=== PATIENT | female | born 1955 | race Caucasian/White ===

== ENCOUNTER → 2019-04-07 | Outpatient (CLI) | payer BC ==
[~2019-04-07] VITALS: Ht 167 cm; Wt 82.0 kg
[~2019-04-07] MED LIST: CATHETER FLUSH 10 ML SYR IV PRN; REGADENOSON 0.4 MG/5 ML SYR (LEXISCAN) IV ONE
[2019-04-07 09:59] VITALS: BP 129/80
--- NOTE | 2019-04-08 11:51 | STRESS TEST ---
DATE OF SERVICE: 04/07/2019 RESTING AND POST REGADENOSON TECHNETIUM-99M TETROFOSMIN SPECT CT IMAGING ORDERING PHYSICIAN: Dr. Muller. CLINICAL DIAGNOSIS: Shortness of breath. Baseline images were carried out after injection of 10.47 mCi of technetium-99m Tetrofosmin. This was followed by 0.4 mg Regadenoson and 32.8 mCi of technetium-99m Tetrofosmin for stress imaging. The electrocardiogram showed sinus rhythm at baseline. It did not change significantly with Regadenoson infusion. Review of images at rest and following stress does not indicate any significant perfusion defects consistent with significant myocardial ischemia or infarction. Gated images show normal global left ventricular systolic function with normal regional wall motion. Left ventricular ejection fraction is calculated to be 69%. Left ventricular end diastolic volume is 38 mL. TID is absent (1.05). CONCLUSIONS: 1. No evidence of any significant myocardial ischemia or infarction on this study. 2. Normal regional wall motion. 3. Normal global left ventricular systolic function with a calculated ejection fraction of 69%. Job ID: [id number] DocumentID: [id number] Dictated Date: 04/08/2019 09:29:04 Squadron Worker Date: 04/08/2019 11:50:32 Dictated By: LIZ RICKS MD, MA, FACP, FACC,
== END ==
LOC: CARD 09:01
PROVIDERS: ATTEND Family Medicine
DX: R06.02 Shortness of breath (principal)
CPT/HCPCS: 78452; 93017

== ENCOUNTER 2020-10-09 19:05 | Inpatient (IN) | payer BC ==
[~2020-10-09] VITALS: Ht 167.7 cm; Wt 90.9 kg
--- NOTE | 2020-10-09 19:13 | ED General ---
General Stated Complaint: SOB Source of Information: Patient History of Present Illness Date Seen by Provider: Oct 09, 2020 Time Seen by Provider: 19:07 Initial Comments PT ARRIVES VIA [facility] FROM HOME PT HAS BEEN SICK FOR 2 WEEKS/12 DAYS, AND HAS NOT SOUGHT CARE UNTIL TONIGHT "POSSIBLE COVID" -- HAS ALSO BEEN ILL WITH SAME, BUT NOT SEEN A DR NOR ANETA MUNOZ FOR COVID-19. MULTIPLE GNOSTICIST MEMBERS WITH COVID-19 C/O GENERALIZED WEAKNESS--TOO WEAK TO STAND C/O SHORTNESS OF BREATH C/O CHEST PAIN C/O HEADACHE C/O BODY ACHES C/O FEVER UP TO 101--TOOK MOTRIN A COUPLE OF DAYS AGO C/O NAUSEA/VOMITING/DIARRHEA, BUT NO VOMITING OR DIARRHEA TODAY. HAS NOT BEEN EATING, BUT HAS BEEN DRINKING FLUIDS VOIDING A NORMAL AMOUNT NO LOSS OF TASTE OR SMELL HAS HISTORY OF P.E.'S ABOUT 3 YEARS AGO. PT STATES SHE HAS NOT BEEN ON BLOOD THINNERS FOR A COUPLE OF YEARS. PT STATES SHE DOES NOT KNOW WHAT CAUSED THEM PT HAS NOT SEEN A DR IN OVER A YEAR, AND "DOESN'T GO TO THE DR" --WAS SEEING DR. MYRICK FOR ABOUT A YEAR, BUT HAS NOT SEEN IN OVER A YEAR PT DENIES ANY HISTORY OF RESPIRATORY PROBLEMS OTHERWISE, AND STATES SHE HAS NEVER SMOKED IN HER LIFE. PT HAS NOT HAD COVID-19 VACCINE--STATES SHE "DOESN'T BELIEVE IN IT" EMS REPORT THAT O2 SAT WAS 81% ON ROOM AIR AT THE SCENE, PLACED IN O2 AT 4L/NC AND UP TO 92% NO IV OR OTHER TREATMENT DONE BY EMS PCP: WAS SEEING DR. MYRICK Allergies and Home Medications Allergies Coded Allergies: fentanyl (Unverified Allergy, Unknown, 04/07/19) Patient Home Medication List Home Medication List Reviewed: Yes Review of Systems Review of Systems Constitutional: see HPI, chills, fever, malaise, weakness EENTM: no symptoms reported Respiratory: see HPI, cough, short of breath Cardiovascular: see HPI, chest pain; No edema Gastrointestinal: see HPI, diarrhea, loss of appetite, nausea, vomiting Genitourinary: no symptoms reported Musculoskeletal: see HPI (BODY ACHES) Skin: no symptoms reported Psychiatric/Neurological: Headache Hematologic/Lymphatic: No Symptoms Reported Immunological/Allergic: no symptoms reported Past Cmaqcwt-Gjvkhz-Dtxuvn Hx Patient Social History Tobacco Use?: No Substance use?: No Alcohol Use?: No Past Medical History Surgery/Hospitalization HX: NORMAL STRESS TEST 03/[address] RICKS APPENDECTOMY CHOLECYSTECTOMY HYSTERECTOMY/ BILATERAL SALPINGO-OOPHORECTOMY BILATERAL KNEE SCOPES Surgeries: Yes Appendectomy, Gallbladder, Hysterectomy, Oophorectomy, Orthopedic Physical Exam Vital Signs Vital Signs - First Documented Capillary Refill : Height, Weight, BMI Height: '" Weight: lbs. oz. kg; 29.40 BMI Method: General Appearance: No Apparent Distress, WD/WN, Other (MILDLY LETHARGIC) HEENT: PERRL/EOMI, Other (ORAL MUCOSA SLIGHTLY DRY) Neck: Normal Inspection Respiratory: Normal Breath Sounds, No Accessory Muscle Use, No Respiratory Distress Cardiovascular: Regular Rate, Rhythm, No Edema, No JVD, No Murmur, Normal Peripheral Pulses Gastrointestinal: Non Tender, Soft Extremity: Normal Capillary Refill, Normal Inspection, Normal Range of Motion, Non Tender, No Calf Tenderness Neurologic/Psychiatric: Alert, Oriented x3, No Motor/Sensory Deficits, environmental journalist II- XII Norm as Tested Skin: Normal Color, Warm/Dry; No Rash Focused Exam Lactate Level 10/09/20 19:36: Lactic Acid Level 1.49 Lactic Acid Level Laboratory Tests Test 10/09/20 19:36 Lactic Acid Level 1.49 MMOL/L (0.50-2.00) Progress/Results/Core Measures Suspected Sepsis SIRS Temperature: Pulse: Respiratory Rate: Laboratory Tests 10/09/20 19:36: White Blood Count 8.5 Blood Pressure / Mean: 10/09/20 19:36: Lactic Acid Level 1.49 Laboratory Tests 10/09/20 19:36: Creatinine 0.85, INR Comment 0.9, Platelet Count 335, Total Bilirubin 0.5 Results/Orders Lab Results Laboratory Tests Test 10/09/20 19:36 10/09/20 19:56 10/09/20 20:11 10/09/20 20:58 Range/Units White Blood Count 8.5 4.3-11.0 10^3/uL Red Blood Count 4.57 3.80-5.11 10^6/uL Hemoglobin 14.3 11.5-16.0 g/dL Hematocrit 43 35-52 % Mean Corpuscular Volume 94 80-99 fL Mean Corpuscular Hemoglobin 31 25-34 pg Mean Corpuscular Hemoglobin Concent 33 32-36 g/dL Red Cell Distribution Width 13.6 10.0-14.5 % Platelet Count 335 130-400 10^3/uL Mean Platelet Volume 9.7 9.0-12.2 fL Immature Granulocyte % (Auto) 1 % Neutrophils (%) (Auto) 85 H 42-75 % Lymphocytes (%) (Auto) 11 L 12-44 % Monocytes (%) (Auto) 3 0-12 % Eosinophils (%) (Auto) 0 0-10 % Basophils (%) (Auto) 0 0-10 % Neutrophils # (Auto) 7.3 1.8-7.8 10^3/uL Lymphocytes # (Auto) 0.9 L 1.0-4.0 10^3/uL Monocytes # (Auto) 0.2 0.0-1.0 10^3/uL Eosinophils # (Auto) 0.0 0.0-0.3 10^3/uL Basophils # (Auto) 0.0 0.0-0.1 10^3/uL Immature Granulocyte # (Auto) 0.1 0.0-0.1 10^3/uL Erythrocyte Sedimentation Rate 44 H 0-30 MM/HR Prothrombin Time 12.9 12.2-14.7 SEC INR Comment 0.9 0.8-1.4 Activated Partial Thromboplast Time 32 24-35 SEC D-Dimer 1.10 H 0.00-0.49 UG/ML Sodium Level 137 135-145 MMOL/L Potassium Level 3.9 3.6-5.0 MMOL/L Chloride Level 103 98-107 MMOL/L Carbon Dioxide Level 18 L 21-32 MMOL/L Anion Gap 16 H 5-14 MMOL/L Blood Urea Nitrogen 16 7-18 MG/DL Creatinine 0.85 0.60-1.30 MG/DL Estimat Glomerular Filtration Rate 68 BUN/Creatinine Ratio 19 Glucose Level 109 H 70-105 MG/DL Lactic Acid Level 1.49 0.50-2.00 MMOL/L Calcium Level 9.3 8.5-10.1 MG/DL Corrected Calcium 9.7 8.5-10.1 MG/DL Magnesium Level 2.2 1.6-2.4 MG/DL Total Bilirubin 0.5 0.1-1.0 MG/DL Aspartate Amino Transf (AST/SGOT) 57 H 5-34 U/L Alanine Aminotransferase (ALT/SGPT) 32 0-55 U/L Alkaline Phosphatase 81 40-136 U/L Lactate Dehydrogenase 494 H 125-220 U/L Total Creatine Kinase 35 29-168 U/L Creatine Kinase MB 0.5 <6.6 NG/ML Myoglobin 56.3 10.0-92.0 NG/ML Troponin I < 0.028 <0.028 NG/ML C-Reactive Protein High Sensitivity 19.81 H 0.00-0.50 MG/DL Total Protein 7.1 6.4-8.2 GM/DL Albumin 3.5 3.2-4.5 GM/DL Procalcitonin 0.32 H <0.10 NG/ML SARS-CoV-2 RNA (RT-PCR) Detected H Not Detecte Urine Color YELLOW Urine Clarity CLEAR Urine pH 5.5 5-9 Urine Specific [place] 1.025 H 1.016-1.022 Urine Protein 2+ H NEGATIVE Urine Glucose (UA) NEGATIVE NEGATIVE Urine Ketones 3+ H NEGATIVE Urine Nitrite NEGATIVE NEGATIVE Urine Bilirubin 1+ H NEGATIVE Urine Urobilinogen 0.2 < = 1.0 MG/DL Urine Leukocyte Esterase NEGATIVE NEGATIVE Urine RBC (Auto) 1+ H NEGATIVE Urine RBC RARE /HPF Urine WBC NONE /HPF Urine Squamous Epithelial Cells RARE /HPF Urine Crystals NONE /LPF Urine Bacteria TRACE /HPF Urine Casts NONE /LPF Urine Mucus LARGE H /LPF Urine Culture Indicated CULTURE PENDING B-Type Natriuretic Peptide < 10.0 <100.0 PG/ML Blood Gas Puncture Site RGHT RAD Blood Gas Patient Temperature 98.6 Arterial Blood pH 7.47 H 7.37-7.43 Arterial Blood Partial Pressure CO2 31 L 35-45 MMHG Arterial Blood Partial Pressure O2 86 79-93 MMHG Arterial Blood HCO3 23 23-27 MMOL/L Arterial Blood Total CO2 23.7 21.0-31.0 MMOL/L Arterial Blood Oxygen Saturation 98 94-100 % Arterial Blood Base Excess -0.5 -2.5-2.5 MMOL/L Deep Test POS Blood Gas Ventilator Setting NO Blood Gas Inspired Oxygen 80% My Orders Orders - MARCIA RODRIGUES DO Cbc With Automated Diff (10/09/20 19:07) Comprehensive Metabolic Panel (10/09/20 19:07) Fibrin Degradation Products (10/09/20 19:07) Procalcitonin (Pct) (10/09/20 19:07) Hs C Reactive Protein (10/09/20 19:07) Erythrocyte Sedimentation Rate (10/09/20 19:07) LDH (10/09/20 19:07) Blood Culture (10/09/20:07) Covid 19 Inhouse Test (10/09/20 19:07) Urinalysis (10/09/20 19:07) Urine Culture (10/09/20:07) Protime With Inr (10/09/20:07) Partial Thromboplastin Time (10/09/20 19:07) Chest 1 View, Ap/Pa Only (10/09/20 19:07) Ed Iv/Invasive Line Start (10/09/20:07) Ed Iv/Invasive Line Start (10/09/20:07) Vital Signs Adult Sepsis Patie Q15M (10/09/20:07) O2 (10/09/20 19:07) Remove Rings In Anticipation O (10/09/20:07) Lactic Acid Analyzer (10/09/20:07) Ed Iv/Invasive Line Start (10/09/20 19:07) Lactated Ringers (Lr 1000 Ml Iv Solution (10/09/20 19:15) BNP (10/09/20 19:09) Creatine Kinase (10/09/20 19:09) Creatine Kinase Mb (10/09/20 19:09) Magnesium (10/09/20 19:09) Myoglobin Serum (10/09/20 19:09) Troponin I (10/09/20 19:09) Ekg Tracing (10/09/20 19:09) Monitor-Rhythm Ecg Trace Only (10/09/20 19:09) Aspirin Chewable Tablet (Baby Aspirin Ch (10/09/20 19:30) Dexamethasone Injection (Decadron Inje (10/09/20 19:30) Arterial Blood Gas (10/09/20:19) Nitroglycerin 0.4 Mg Btl 25's (Nitrostat (10/09/20 19:30) Rt Request For Service (10/09/20 19:19) Dexamethasone Injection (Decadron Inje (10/09/20 19:19) Aspirin Chewable Tablet (Baby Aspirin Ch (10/09/20 19:20) Nitroglycerin 0.4 Mg Btl 25's (Nitrostat (10/09/20 19:20) Lactated Ringers (Lr 1000 Ml Iv Solution (10/09/20 19:21) Ondansetron Injection (Zofran Injectio (10/09/20 19:45) Catheter(Urinary) Insert & Ass 03,15 (10/09/20 19:46) Ondansetron Injection (Zofran Injectio (10/09/20 19:43) Ct Angio Chest W (10/09/20 20:39) Iohexol Injection (Omnipaque 350 Mg/Ml 1 (10/09/20 21:00) Received Contrast (Hold Metformin- Contr (10/09/20 21:00) Ns (Ivpb) (Sodium Chloride 0.9% Ivpb Bag (10/09/20 21:00) Iohexol Injection (Omnipaque 350 Mg/Ml 1 (10/09/20 21:45) Received Contrast (Hold Metformin- Contr (10/09/20 21:45) Ns (Ivpb) (Sodium Chloride 0.9% Ivpb Bag (10/09/20 21:45) Medications Given in ED Current Medications Medications Dose Ordered Sig/Kayla Route Start Time Stop Time Status Last Admin Dose Admin Aspirin 324 mg ONCE ONCE PO 10/09/20 19:30 10/09/20 19:31 DC 10/09/20 19:32 324 MG Dexamethasone Sodium Phosphate 10 mg ONCE ONCE IV 10/09/20 19:30 10/09/20 19:31 DC 10/09/20 19:32 10 MG Iohexol 77 ml ONCE ONCE IV 10/09/20 21:45 10/09/20 21:54 DC 10/09/20 21:35 77 ML Lactated Ringer's 1,000 ml @ 0 mls/hr Q0M ONCE IV 10/09/20 19:15 10/09/20 19:16 DC 10/09/20 19:33 999 MLS/HR Ondansetron HCl 4 mg ONCE ONCE IVP 10/09/20 19:45 10/09/20 19:46 DC 10/09/20 19:44 4 MG Sodium Chloride 80 ml ONCE ONCE IV 10/09/20 21:45 10/09/20 21:54 DC 10/09/20 21:35 80 ML Vital Signs/I&O 8/22/21 8/22/21 19:23 19:23 Temp 37.0 Pulse 86 Resp 20 B/P (MAP) 113/81 (92) Pulse Ox 87 O2 Delivery Nasal Cannula Nasal Cannula O2 Flow Rate 5.00 5.00 10/10/20 00:00 Intake Total 1000 ml Balance 1000 ml Capillary Refill : Progress Note : Progress Note PLACED IN ISOLATION ROOM PPE WORN AT ALL TIMES COVID-19 TESTING PERFORMED GIVEN IV FLUIDS GIVEN ZOFRAN GIVEN ASPIRIN, NTG HELD DUE TO BP IN 110'S GIVEN DECADRON INITIAL O2 SAT 87% ON 5L --PLACED ON VAPOTHERM AND O2 SATS UP TO MID 90'S ECG Initial ECG Impression Date: Oct 09, 2020 Initial ECG Impression Time: 19:20 Initial ECG Rate: 85 Initial ECG Rhythm: Normal Sinus Diagnostic Imaging Comments CXR--PER RADIOLOGIST REPORT AT 1939 FINDINGS: There are patchy airspace opacities in the lungs, bilaterally, consistent with infection. There is no pleural effusion or pneumothorax. The cardiac silhouette is normal in size. IMPRESSION: Patchy airspace opacities in the lungs, bilaterally, consistent with infection. CT CHEST ANGIOGRAM--PER RADIOLOGIST REPORT AT 2151 FINDINGS: The pulmonary arteries are diagnostic to the proximal segmental level. No filling defect is seen to indicate a pulmonary embolus. The heart is normal in size. The aorta is normal in caliber. No mediastinal adenopathy is seen. There is a small hiatal hernia. Axillary lymph nodes are unremarkable. There are multifocal groundglass and airspace opacities throughout the lungs, bilaterally, most pronounced in the lower lobes, with dense consolidation. There is no pleural effusion. There is no pneumothorax. No acute osseous abnormality is seen. Imaged portions of the upper abdomen demonstrate no acute abnormality. IMPRESSION: 1. No pulmonary embolus. 2. Multifocal groundglass and airspace opacities in the lungs, with consolidation in the lower lobes consistent with infection. Reviewed: Reviewed by Me Departure Communication (Admissions) Family Conversation 2009--SPOKE WITH PT'S , SABAS RUTH, AND UPDATED HIM ON PT'S CONDITION 2209--CALLED PT'S AND UPDATED HIM AGAIN ON PT'S CONDITION AND PLAN FOR ADMIT. 2151--SPOKE WITH DR. COOPER, HOSPITALIST, ACCEPTS PT FOR ADMIT. ORDERS NOTED 2214--REPORT GIVEN TO E-ICU PHYSICIAN, NO ADDITIONAL RECOMMENDATIONS Impression Primary Impression: Pneumonia due to COVID-19 virus Additional Impression: Acute respiratory failure due to COVID-19 Disposition: ADMITTED INPATIENT Condition: Improved Admissions Decision to Admit Reason: Admit from ER (General) Decision to Admit/Date: Oct 09, 2020 Time/Decision to Admit Time: 21:55 Departure-Patient Inst. Referrals: JC MYRICK MD (PCP/Family) Primary Care Physician MARCIA RODRIGUES DO Oct 09, 2020 19:13
[2020-10-09] MEDS ORDERED: LACTATED RINGERS 1,000 ML IV ONE ×3 (19:15→22:15)
[2020-10-09] MEDS ORDERED: ASPIRIN 81 MG CHEW (CHILDREN'S ASA) ONE (19:20)
[2020-10-09] MEDS ORDERED: NITROGLYCERIN 0.4 MG SL TABS BTL 25'S SL ONE (19:20)
[2020-10-09] MEDS ORDERED: NITROGLYCERIN 0.4 MG SL TABS BTL 25'S SL PRN (19:30)
[2020-10-09] MEDS ORDERED: ASPIRIN 81 MG CHEW (CHILDREN'S ASA) PO ONE (19:30)
--- NOTE | 2020-10-09 19:37 | Diagnostic Imaging Report ---
HISTORY: Sepsis. COMPARISON: None. TECHNIQUE: Frontal view of the chest. FINDINGS: There are patchy airspace opacities in the lungs, bilaterally, consistent with infection. There is no pleural effusion or pneumothorax. The cardiac silhouette is normal in size. IMPRESSION: Patchy airspace opacities in the lungs, bilaterally, consistent with infection. Dictated by: Dictated on workstation # [id number]
[2020-10-09] MEDS ORDERED: ONDANSETRON 4 MG/2 ML (SDV) Z0FRAN ONE (19:43)
[2020-10-09] MEDS ORDERED: ONDANSETRON 4 MG/2 ML (SDV) Z0FRAN IVP ONE ×2 (19:45→22:15)
[2020-10-09 19:56] LABS: BASOPHILS % (AUTO) 0 % (0-10); EOSINOPHILS % (AUTO) 0 % (0-10); HEMATOCRIT 43 % (35-52); HEMOGLOBIN 14.3 g/dL (11.5-16.0); LYMPHOCYTES # (AUTO) 0.9 10^3/uL (1.0-4.0); LYMPHOCYTES % (AUTO) 11 % (12-44); MEAN CORPUSCULAR HEMOGLOBIN 31 pg (25-34); MEAN CORPUSCULAR HGB CONC 33 g/dL (32-36); MEAN CORPUSCULAR VOLUME 94 fL (80-99); MEAN PLATELET VOLUME 9.7 fL (9.0-12.2); MONOCYTES # (AUTO) 0.2 10^3/uL (0.0-1.0); MONOCYTES % (AUTO) 3 % (0-12); NEUTROPHILS # (AUTO) 7.3 10^3/uL (1.8-7.8); NEUTROPHILS % (AUTO) 85 % (42-75); PLATELET COUNT 335 10^3/uL (130-400); WHITE BLOOD COUNT 8.5 10^3/uL (4.3-11.0)
[2020-10-09 20:09] LABS: FIBRIN DEGRADATION PRODUCTS 1.1 UG/ML (0.00-0.49); INR 0.9 (0.8-1.4); PROTHROMBIN TIME PATIENT 12.9 SEC (12.2-14.7)
[2020-10-09 20:15] LABS: CLARITY,URINE CLEAR; COLOR,URINE YELLOW; GLUCOSE, URINE (UA) NEGATIVE (NEGATIVE); KETONES,URINE 3+ (NEGATIVE); LEUKOCYTE ESTERASE ,URINE NEGATIVE (NEGATIVE); NITRITE,URINE NEGATIVE (NEGATIVE); PH,URINE 5.5 (5-9); PROTEIN,URINE 2+ (NEGATIVE)
[2020-10-09 20:24] LABS: ALANINE AMINOTRANSFERASE 32 U/L (0-55); ALBUMIN 3.5 GM/DL (3.2-4.5); ALKALINE PHOSPHATASE 81 U/L (40-136); BILIRUBIN,TOTAL 0.5 MG/DL (0.1-1.0); BUN/CREATININE RATIO 19; CALCIUM 9.3 MG/DL (8.5-10.1); CARBON DIOXIDE 18 MMOL/L (21-32); CHLORIDE 103 MMOL/L (98-107); CREATINE KINASE 35 U/L (29-168); CREATININE SERUM 0.85 MG/DL (0.60-1.30); ERYTHROCYTE SEDIMENTATION RATE 44 MM/HR (0-30); GFR ESTIMATED 68; GLUCOSE 109 MG/DL (70-105); MAGNESIUM 2.2 MG/DL (1.6-2.4); POTASSIUM 3.9 MMOL/L (3.6-5.0); SODIUM 137 MMOL/L (135-145); TOTAL PROTEIN 7.1 GM/DL (6.4-8.2)
[2020-10-09 20:34] LABS: BACTERIA,URINE TRACE /HPF; BILIRUBIN,URINE 1+ (NEGATIVE); RBC,URINE RARE /HPF; SQUAMOUS EPITHELIAL CELL,UR RARE /HPF
[2020-10-09 20:39] LABS: CREATINE KINASE MB 0.5 NG/ML (<6.6)
[2020-10-09] MEDS ORDERED: NS 100 ML (IVPB) BAG IV ONE ×2 (21:00→21:45)
[2020-10-09] MEDS ORDERED: IOHEXOL 350 MG/ML 100 ML (OMNIPAQUE 350) VIAL IV ONE ×2 (21:00→21:45)
[2020-10-09] MEDS ORDERED: HOLD METFORMIN - RECEIVED CONTRAST 20 ML VIAL IV SCH ×2 (21:00→21:45)
[2020-10-09 21:17] LABS: ABG BASE EXCESS -0.5 MMOL/L (-2.5-2.5); ABG OXYGEN SATURATION 98 % (94-100); ABG PCO2 31 MMHG (35-45); ABG PH 7.47 (7.37-7.43); ABG PO2 86 MMHG (79-93); ABG TCO2 23.7 MMOL/L (21.0-31.0)
[2020-10-09 21:18] LABS: ALLENS TEST POS; INSPIRED O2 80%; PATIENT TEMP 98.6; VENTILATOR NO
--- NOTE | 2020-10-09 21:47 | Diagnostic Imaging Report ---
PROCEDURE: CT angiography of the chest with contrast. TECHNIQUE: Multiple contiguous axial images were obtained through the chest after uneventful bolus administration of intravenous contrast. 3D reconstructed CTA MIP acquisitions were also performed. Auto Exposure Controls were utilized during the CT exam to meet ALARA standards for radiation dose reduction. INDICATION: Shortness of air, Covid. COMPARISON: None. FINDINGS: The pulmonary arteries are diagnostic to the proximal segmental level. No filling defect is seen to indicate a pulmonary embolus. The heart is normal in size. The aorta is normal in caliber. No mediastinal adenopathy is seen. There is a small hiatal hernia. Axillary lymph nodes are unremarkable. There are multifocal groundglass and airspace opacities throughout the lungs, bilaterally, most pronounced in the lower lobes, with dense consolidation. There is no pleural effusion. There is no pneumothorax. No acute osseous abnormality is seen. Imaged portions of the upper abdomen demonstrate no acute abnormality. IMPRESSION: 1. No pulmonary embolus. 2. Multifocal groundglass and airspace opacities in the lungs, with consolidation in the lower lobes consistent with infection. Dictated by: Dictated on workstation # [id number]
[2020-10-09] MEDS ORDERED: ENOXAPARIN 100 MG/1 ML (LOVENOX) SYR SC ONE (22:15)
[2020-10-09] MEDS ORDERED: AZITHROMYCIN INJECTION 500 MG in NS (IVPB) 250 ML IV ONE (22:15)
[2020-10-09] MEDS ORDERED: cefTRIAXone 1,000 MG in WATER (STERILE) FOR INJECTION 10 ML IV ONE (22:15)
[2020-10-09] MEDS ORDERED: ONDANSETRON 4 MG/2 ML (SDV) Z0FRAN IV PRN (23:30)
[2020-10-10 00:11] VITALS: BP 113/81
[2020-10-10] MEDS ORDERED: RT-ALBUTEROL HFA 8.5 GM INHALER IH PRN (00:30)
--- NOTE | 2020-10-10 00:36 | Tele-ICU Progress Note ---
Progress Note 64 y/o with c/o being sick for 2 wks and has been sick as well. Not vaccinated and tested positive for COVID-19. CT chest with multifocal PNA. Negative for PE. Had Hx of PE 1 yr ago for which she was on AC for 1 year. D-dime1.1 Sats 95% on HFNC 25L/ 50% with none to minimal increase in WOB. Sats 95%. Inflammatory markers elevated. A/P 1. Acute hypoxic resp failure 2. 2/2 multifocal PNA poa due to covid-19 Non-vaccinated. 2. Hx of PE 1 yr ago s/p AC for 1 year. Decadron, Abx and Lovenox therapeutic dose given. will continue to monitor. ID consult, deemed not a candidate for Remdesivir since symptomatic x 2 wks. D/W the bedside nurse. Focused Exam Lactate Level 10/09/20 19:36: Lactic Acid Level 1.49 Height, Weight, BMI Height: '" Weight: lbs. oz. kg; 33.31 BMI Method: VEDA RODRIGUEZ MD Oct 10, 2020 00:36
[2020-10-10] MEDS: D5 1/2 NS W/KCL 20 MEQ/L 1,000 ML IV SCH ×2 (00:43→06:38)
[2020-10-10 03:49] LABS: BASOPHILS % (AUTO) 0 % (0-10); EOSINOPHILS % (AUTO) 0 % (0-10); HEMATOCRIT 38 % (35-52); HEMOGLOBIN 12.3 g/dL (11.5-16.0); LYMPHOCYTES # (AUTO) 0.6 10^3/uL (1.0-4.0); LYMPHOCYTES % (AUTO) 9 % (12-44); MEAN CORPUSCULAR HEMOGLOBIN 32 pg (25-34); MEAN CORPUSCULAR HGB CONC 33 g/dL (32-36); MEAN CORPUSCULAR VOLUME 97 fL (80-99); MONOCYTES # (AUTO) 0.1 10^3/uL (0.0-1.0); MONOCYTES % (AUTO) 1 % (0-12); NEUTROPHILS # (AUTO) 6.2 10^3/uL (1.8-7.8); NEUTROPHILS % (AUTO) 89 % (42-75); PLATELET COUNT 281 10^3/uL (130-400); WHITE BLOOD COUNT 6.9 10^3/uL (4.3-11.0)
[2020-10-10] MEDS: RT-ALBUTEROL HFA 8.5 GM INHALER IH SCH ×4 (03:52→21:30)
[2020-10-10 04:00] LABS: POTASSIUM 4.1 MMOL/L (3.6-5.0)
[2020-10-10 04:01] LABS: CALCIUM 8.4 MG/DL (8.5-10.1)
[2020-10-10 04:05] LABS: PHOSPHORUS 2.1 MG/DL (2.3-4.7)
[2020-10-10 04:06] LABS: CREATININE SERUM 0.79 MG/DL (0.60-1.30)
[2020-10-10] MEDS: MAGNESIUM 1 GM/100 ML IVPB 100 ML IV SCH (05:25)
[2020-10-10] MEDS: POTASSIUM CL 10MEQ/50ML IVPB 50 ML IV SCH (05:25)
[2020-10-10] MEDS: KCL 20 MEQ TAB (K-DUR) PO SCH (05:26)
[2020-10-10] MEDS: PANTOPRAZOLE 40 MG (PROTONIX) VIAL IV SCH (09:05)
[2020-10-10] MEDS: ENOXAPARIN 100 MG/1 ML (LOVENOX) SYR SC SCH ×2 (09:05→22:13)
[2020-10-10] MEDS: ACETAMINOPHEN 500 MG TAB (TYLENOL) PO PRN ×2 (09:06→18:10)
--- NOTE | 2020-10-10 11:36 | Tele-ICU Progress Note ---
Subjective Date Seen by a Provider: Oct 10, 2020 Time Seen by a Provider: 11:35 Sepsis Event Evaluation Height, Weight, BMI Height: '" Weight: lbs. oz. kg; 33.31 BMI Method: Focused Exam Lactate Level 10/09/20 19:36: Lactic Acid Level 1.49 Exam Exam Patient acknowledged, consented, and participated in this virtual visit which was conducted using real time audio/video Vital Signs Date Time Temp Pulse Resp B/P (MAP) Pulse Ox O2 Delivery O2 Flow Rate FiO2 10/10/20 11:00 57 21 105/61 (76) 98 Vapotherm 25.00 60.00 10/10/20 10:00 65 14 108/68 (81) 98 Vapotherm 25.00 60.00 10/10/20 09:52 99 Vapotherm 25.00 70 10/10/20 09:00 54 40 110/67 (81) 92 Vapotherm 25.00 70.00 10/10/20 08:00 Vapotherm 25.00 70 10/10/20 08:00 50 17 108/62 (77) 97 Vapotherm 25.00 70.00 10/10/20 07:59 35.0 10/10/20 07:00 58 15 103/59 (74) 95 Vapotherm 25.00 70.00 10/10/20 06:43 69 10/10/20 06:00 64 20 92/52 (65) 91 Vapotherm 25.00 70.00 10/10/20 05:00 67 20 101/55 (70) 95 Vapotherm 25.00 70.00 10/10/20 04:00 61 20 92/50 (64) 92 Vapotherm 25.00 70.00 10/10/20 04:00 Vapotherm 25.00 70 10/10/20 03:52 94 Vapotherm 25.00 70 10/10/20 03:00 51 16 95/59 (71) 90 Vapotherm 25.00 70.00 10/10/20 02:54 95 Vapotherm 25.00 50 10/10/20 02:00 56 16 86/50 (62) 90 Vapotherm 25.00 70.00 10/10/20 01:00 60 10/10/20 01:00 58 20 91/62 (72) 94 Vapotherm 25.00 50.00 10/10/20 00:11 37.0 86 87 32 10/10/20 00:00 66 15 98/73 (81) 92 Vapotherm 25.00 50.00 10/09/20 23:30 64 10/09/20 23:20 Vapotherm 25.00 50 10/09/20 23:20 36.3 61 20 114/74 (87) 94 Vapotherm 25.00 50.00 10/09/20 23:18 98 Vapotherm 25.00 80 10/09/20 23:10 37.0 69 19 94/67 (92) 94 Vapotherm 25.00 10/09/20 22:17 94 Vapotherm 25.00 75 10/09/20 19:23 Nasal Cannula 5.00 10/09/20 19:23 37.0 86 20 113/81 (92) 87 Nasal Cannula 5.00 I & O 10/10/20 07:00 Intake Total 2260 ml Output Total 750 ml Balance 1510 ml Height & Weight Height: '" Weight: lbs. oz. 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 II- XII Norm as Tested Skin: Normal Color, Warm/Dry; No Rash Results Lab Laboratory Tests 10/09/20 19:36 10/10/20 03:20 Assessment/Plan Assessment/Plan (Tele-ICU Physician , Progress Note ) Available chart/ vitals / labs / Images reviewed Video assessment done using teleICU camera, rest of exam as per RN Discussed with RN Events overnight : Afebrile I/O = Drips: Pressors: , hemodynamically stable EXAM PER RN Consultants: Hospital course: 10/10 - admitted with COVID , AHRF-HFNC 25L/ 50% A/P AHRF / ARDS due to severe COVID19 ( no PE on CT 8/ -prone position if able - conservative fluid strategy (aim for even or negative fluid balance - STOP IVF [id number]/[id number]-19 PNA ( symptoms >2 weeks , Dx 10/09 , not vaccinated ) -Remdesivir-? as per local MD ( given sever dz with > 2 weeks illness -no major clinical benefit ) -Steroids IV - started -Hypercoagulable state , DDIMER neg 10/09, no evidence of large PE on CT 10/09 - with h/o PE stated on full dose lovenox Superimposed bact PNA ( with elev PCT -cefepime 10/10 H/o PE in past -on lovenox full dose Hyperglycemia - ISS , close f/up on steroids Lines : periph (Central Line Necessity Reviewed) Garza: OG: Nutrition: PO Analgesia: Anxiety/ delirium na VTE Prophylaxis: full lovenox Stress Ulcer Prophylaxis: PPI Glycemic Control: + Plans in collaboration with bedside consultants and IM MDs. Discussed with RN to reach out if any questions or concerns - follow up on consult done last night . SYLVIA BREEN MD Oct 10, 2020 11:36
[2020-10-10] MEDS ORDERED: BARICITINIB 2 MG (OLUMIANT)TABLET PO NR (16:00)
[2020-10-10] MEDS: inSUlin ASPART (NovoLOG) 1 UNIT/0.01 ML (CHARGE PER UNIT) SC SCH ×2 (18:56→22:13)
--- NOTE | 2020-10-10 20:33 | History & Physical-Hospitalist ---
History of Present Illness HPI/Chief Complaint Megha Gallagher is a 64 year old female who presented with shortness of breath. She does not follow with a doctor. She does not take any medications regularly. She has been sick for almost two weeks. She has had fevers. She has had a cough. She reports body aches. Her has been sick also, but is doing better than he r. Her sabianism friends have also been sick. She has been taking Hydroxychloroquine and Ivermectin that she got from a "friend". She is unvaccinated. She has a history of pulmonary embolism but no longer takes blood thinners. She thinks she got the blood clot after a knee surgery. Source: patient Exam Limitations: no limitations Date Seen 10/10/20 Time Seen by a Provider: 10:00 Attending Physician Maggy Cooper MD PCP Claudy Muller MD Referring Physician Date of Admission Oct 09, 2020 at 21:55 Home Medications & Allergies Home Medications Reviewed patient Home Medication Reconciliation performed by pharmacy medication reconciliations clock repair technician and/or nursing. Patients Allergies have been reviewed. Allergies Allergies Coded Allergies fentanyl (Unverified Allergy, Unknown, 04/07/19) Past Dmbxymf-Ybqsyj-Ghejbr Hx Patient Social History Tobacco Use?: No Smoking Status: Never a Smoker Smokeless Tobacco Frequency: Never a User Use of E-Cig and/or Vaping dev: No Substance use?: No Alcohol Use?: No Pt feels they are or have been: No Immunizations Up To Date Tetanus Booster (TDap): Unknown Hepatitis A: No Hepatitis B: No Current Status status: No status: No Advance Directives: No Communicates: Verbally Primary Language: Tristanian Preferred Spoken Language: Tristanian Is interpretation needed?: No Implanted or Applied Medical D: None Past Medical History Surgeries: Appendectomy, Gallbladder, Hysterectomy, Oophorectomy, Orthopedic Family Medical History No Pertinent Family Hx Review of Systems Constitutional: fever, malaise EENTM: no symptoms reported Respiratory: cough, short of breath Cardiovascular: chest pain Gastrointestinal: nausea Genitourinary: no symptoms reported Musculoskeletal: no symptoms reported Skin: no symptoms reported Psychiatric/Neurological: No Symptoms Reported Physical Exam Physical Exam Vital Signs Vital Signs - First Documented 10/09/20 22:17 FiO2 75 Capillary Refill : Less Than 3 Seconds Height, Weight, BMI Height: '" Weight: lbs. oz. kg; 33.31 BMI Method: General Appearance: No Apparent Distress, Anxious, Obese HEENT: PERRL/EOMI, Pharynx Normal Neck: Normal Inspection, Supple Respiratory: Lungs Clear, Normal Breath Sounds, No Respiratory Distress Cardiovascular: Regular Rate, Rhythm, No Edema, No Murmur Gastrointestinal: Normal Bowel Sounds, Non Tender, Soft Extremity: Normal Inspection, Non Tender, No Pedal Edema Neurologic/Psychiatric: Alert, Oriented x3, No Motor/Sensory Deficits Skin: Normal Color, Warm/Dry Lymphatic: No Adenopathy Results Results/Procedures Labs Laboratory Tests 10/09/20 19:36 10/10/20 03:20 Patient resulted labs reviewed. Imaging: Reviewed Imaging Report Assessment/Plan Admission Diagnosis Acute respiratory failure due to COVID-19 Admission Status: Inpatient Order (span 2 midnights) Reason for Inpatient Admission: Respiratory failure Assessment and Plan Acute respiratory failure due to COVID-19 Lymphopenia associated with COVID-19 Secondary bacterial pneumonia Hypercoagulable state associated with COVID-19 COVID+ on arrival CXR consistent with COVID pneumonia Procalcitonin elevated Started on Rocpehin and Azithromycin Ddimer elevated, history of PE Started on therapeutic Lovenox Decadron Begin Baricitinib, discussed risks/benefits/EUA use and patient agrees Requiring Vapotherm Obesity Clinically significant, no acute management needs Critical Care Critically Ill Patient Diagnosis/Problems Diagnosis/Problems (1) Acute respiratory failure due to COVID-19 Status: Acute (2) Pneumonia due to COVID-19 virus Status: Acute (3) Lymphopenia due to COVID-19 virus Status: Acute (4) Hypercoagulable state associated with COVID-19 Status: Acute (5) Secondary bacterial pneumonia Status: Acute (6) Obesity Status: Chronic MAGGY COOPER MD Oct 10, 2020 20:33
[2020-10-10] MEDS: cefTRIAXone 1,000 MG in WATER (STERILE) FOR INJECTION 10 ML IV SCH (22:13)
[2020-10-10] MEDS: AZITHROMYCIN INJECTION 500 MG in NS (IVPB) 250 ML IV SCH (22:20)
[2020-10-11] MEDS: RT-ALBUTEROL HFA 8.5 GM INHALER IH SCH ×4 (02:24→21:38)
[2020-10-11 04:22] LABS: BASOPHILS % (AUTO) 0 % (0-10); EOSINOPHILS % (AUTO) 0 % (0-10); HEMATOCRIT 37 % (35-52); HEMOGLOBIN 12.2 g/dL (11.5-16.0); LYMPHOCYTES # (AUTO) 1.1 10^3/uL (1.0-4.0); LYMPHOCYTES % (AUTO) 12 % (12-44); MEAN CORPUSCULAR HEMOGLOBIN 31 pg (25-34); MEAN CORPUSCULAR HGB CONC 33 g/dL (32-36); MEAN CORPUSCULAR VOLUME 96 fL (80-99); MEAN PLATELET VOLUME 10.1 fL (9.0-12.2); MONOCYTES # (AUTO) 0.3 10^3/uL (0.0-1.0); MONOCYTES % (AUTO) 3 % (0-12); NEUTROPHILS # (AUTO) 7.3 10^3/uL (1.8-7.8); NEUTROPHILS % (AUTO) 83 % (42-75); PLATELET COUNT 318 10^3/uL (130-400); WHITE BLOOD COUNT 8.8 10^3/uL (4.3-11.0)
[2020-10-11 04:35] LABS: POTASSIUM 3.8 MMOL/L (3.6-5.0)
[2020-10-11 04:36] LABS: CALCIUM 8.7 MG/DL (8.5-10.1)
[2020-10-11 04:41] LABS: CREATININE SERUM 0.81 MG/DL (0.60-1.30); PHOSPHORUS 1.5 MG/DL (2.3-4.7)
[2020-10-11 04:43] LABS: MAGNESIUM 2.3 MG/DL (1.6-2.4)
[2020-10-11] MEDS: MAGNESIUM 1 GM/100 ML IVPB 100 ML IV SCH (06:06)
[2020-10-11] MEDS: POTASSIUM CL 10MEQ/50ML IVPB 50 ML IV SCH (06:06)
[2020-10-11] MEDS: KCL 20 MEQ TAB (K-DUR) PO SCH (06:07)
[2020-10-11] MEDS: inSUlin ASPART (NovoLOG) 1 UNIT/0.01 ML (CHARGE PER UNIT) SC SCH ×4 (06:07→21:48)
[2020-10-11] MEDS: PANTOPRAZOLE 40 MG (PROTONIX) VIAL IV SCH (08:07)
[2020-10-11] MEDS: ACETAMINOPHEN 500 MG TAB (TYLENOL) PO PRN (08:08)
[2020-10-11] MEDS: ENOXAPARIN 100 MG/1 ML (LOVENOX) SYR SC SCH (08:08)
[2020-10-11] MEDS ORDERED: LORazepam 0.5 MG (ATIVAN) TABLET PO PRN (08:30)
[2020-10-11] MEDS ORDERED: guaiFENesin/DM (ROBITUSSIN DM) 10 ML UDC PO PRN (08:30)
--- NOTE | 2020-10-11 09:10 | Progress Note - Hospitalist ---
Subjective HPI/CC On Admission Date Seen by Provider: Oct 11, 2020 Time Seen by Provider: 09:05 Megha Gallagher is a 64 year old female who presented with shortness of breath. She does not follow with a doctor. She does not take any medications regularly. She has been sick for almost two weeks. She has had fevers. She has had a cough. She reports body aches. Her has been sick also, but is doing better than her. Her taoist friends have also been sick. She has been taking Hydroxychloroquine and Ivermectin that she got from a "friend". She is unvaccinated. She has a history of pulmonary embolism but no longer takes blood thinners. She thinks she got the blood clot after a knee surgery. Subjective/Events-last exam Pt reports being very anxious. She is hyperventilating. She also complains of a headache. Is unable to tell me when it started. Thinks maybe two weeks ago but also maybe today. No other specific complaints. Focused Exam Lactate Level 10/09/20 19:36: Lactic Acid Level 1.49 Objective Exam Vital Signs Vital Signs Date Time Temp Pulse Resp B/P (MAP) Pulse Ox O2 Delivery O2 Flow Rate FiO2 10/11/20 08:13 36.8 10/11/20 07:05 55 16 94 Vapotherm 25.00 45.00 10/11/20 06:58 70 Capillary Refill : Less Than 3 Seconds General Appearance: Anxious, Obese Respiratory: Decreased Breath Sounds, Rhonci, Other (tachypneic) Cardiovascular: Regular Rate, Rhythm, No Murmur Neurologic/Psychiatric: Alert, Oriented x3 Results/Procedures Lab Laboratory Tests 10/11/20 04:07 Patient resulted labs reviewed. Imaging: Reviewed Imaging Report Assessment/Plan Assessment and Plan Assess & Plan/Chief Complaint Acute respiratory failure due to COVID-19 Lymphopenia associated with COVID-19- resolved Secondary bacterial pneumonia Hypercoagulable state associated with COVID-19 COVID+ on arrival CXR consistent with COVID pneumonia Procalcitonin elevated, minimally though Continue on Rocpehin and Azithromycin Ddimer elevated, history of PE therapeutic Lovenox Decadron Begin Baricitinib, discussed risks/benefits/EUA use and patient agrees Requiring Vapotherm still though down some on requirements very small dose ativan added for anxiety Headache Reports severe headache Will get CT head Obesity Clinically significant, no acute management needs DVt ppx: Lovenox as above GI ppx: Protonix Critical Care Critically Ill Patient BRIAN GARZA MD Oct 11, 2020 09:10
--- NOTE | 2020-10-11 09:43 | Diagnostic Imaging Report ---
PROCEDURE: CT head wo r/o stroke. TECHNIQUE: Multiple contiguous axial images were obtained through the brain without the use of intravenous contrast. Auto Exposure Controls were utilized during the CT exam to meet ALARA standards for radiation dose reduction. INDICATION: Head pain, seizure-like activity, Covid. No priors. FINDINGS: There is no hemorrhage, hydrocephalus, edema, mass, mass effect nor evidence for an elevation of the intracerebral pressures. There are no abnormal extra-axial fluid collections. The orbital contents and paranasal sinuses appeared unremarkable. Calvarium unremarkable. IMPRESSION: No hemorrhage, edema or acute appearing abnormalities. Dictated by: Dictated on workstation # [id number]
[2020-10-11] MEDS: BARICITINIB 2 MG (OLUMIANT)TABLET PO SCH (11:10)
--- NOTE | 2020-10-11 11:56 | Tele-ICU Progress Note ---
Subjective Date Seen by a Provider: Oct 11, 2020 Time Seen by a Provider: 11:56 Sepsis Event Evaluation Height, Weight, BMI Height: '" Weight: lbs. oz. kg; 33.31 BMI Method: Focused Exam Lactate Level 10/09/20 19:36: Lactic Acid Level 1.49 Exam Exam Patient acknowledged, consented, and participated in this virtual visit which was conducted using real time audio/video Vital Signs Date Time Temp Pulse Resp B/P (MAP) Pulse Ox O2 Delivery O2 Flow Rate FiO2 10/11/20 09:46 Nasal Cannula 6.00 10/11/20 09:10 Nasal Cannula 6.00 10/11/20 09:00 64 13 102/63 (76) 91 Vapotherm 25.00 60.00 10/11/20 08:13 36.8 10/11/20 08:00 49 13 109/63 (78) 93 Vapotherm 25.00 60.00 10/11/20 07:05 55 16 94 Vapotherm 25.00 45.00 10/11/20 07:00 58 11 89/52 (64) 97 Vapotherm 25.00 60.00 10/11/20 06:58 96 Vapotherm 25.00 70 10/11/20 06:00 50 19 88/52 (64) 97 Vapotherm 25.00 60.00 10/11/20 05:00 47 13 105/62 (76) 99 Vapotherm 25.00 60.00 10/11/20 04:00 48 13 94/64 (74) 96 Vapotherm 25.00 60.00 10/11/20 04:00 Vapotherm 25.00 70 10/11/20 04:00 36.5 10/11/20 03:00 56 14 91/56 (68) 90 Vapotherm 25.00 60.00 10/11/20 02:25 91 Vapotherm 25.00 70 10/11/20 02:00 49 15 85/56 (66) 95 Vapotherm 25.00 60.00 10/11/20 01:00 52 10/11/20 01:00 50 99/70 (80) 96 Vapotherm 25.00 60.00 10/11/20 00:00 54 19 90/57 (68) 93 Vapotherm 25.00 60.00 10/11/20 00:00 36.3 10/11/20 00:00 Vapotherm 25.00 70 10/10/20 23:18 Vapotherm 25.00 60.00 10/10/20 23:00 58 26 96/63 (74) 97 Vapotherm 40.00 100.00 10/10/20 22:00 89 115/109 (111) 92 Vapotherm 40.00 100.00 10/10/20 21:30 92 Vapotherm 25.00 70 10/10/20 21:26 53 16 92 Vapotherm 40.00 100.00 10/10/20 21:00 53 17 92/62 (72) 92 Vapotherm 25.00 60.00 10/10/20 20:00 56 19 94/60 (71) 92 Vapotherm 25.00 60.00 10/10/20 20:00 Vapotherm 25.00 70 10/10/20 19:46 36.1 10/10/20 19:00 60 20 95/60 (72) 91 Vapotherm 25.00 60.00 10/10/20 19:00 60 10/10/20 18:00 68 26 110/65 (80) 94 Vapotherm 25.00 60.00 10/10/20 17:00 66 22 114/66 (82) 87 Vapotherm 25.00 60.00 10/10/20 16:00 68 17 104/64 (77) 93 Vapotherm 25.00 60.00 10/10/20 16:00 Vapotherm 25.00 70 10/10/20 16:00 35.0 10/10/20 15:04 99 Vapotherm 30.00 75 10/10/20 15:00 51 17 93/63 (73) 93 Vapotherm 25.00 60.00 10/10/20 14:00 55 19 96/62 (73) 85 Vapotherm 25.00 60.00 10/10/20 13:00 56 11 113/68 (83) 97 Vapotherm 25.00 60.00 10/10/20 12:53 53 10/10/20 12:00 35.6 10/10/20 12:00 58 10 108/66 (80) 98 Vapotherm 25.00 60.00 10/10/20 12:00 Vapotherm 25.00 70 I & O 10/11/20 07:00 Intake Total 540 ml Output Total 840 ml Balance -300 ml Height & Weight Height: '" Weight: lbs. oz. kg; 33.31 BMI Method: General Appearance: Anxious, Obese HEENT: PERRL/EOMI, Pharynx Normal Neck: Normal Inspection, Supple Respiratory: Decreased Breath Sounds, Rhonci, Other (tachypneic) Cardiovascular: Regular Rate, Rhythm, No Murmur Capillary Refill: Less Than 3 Seconds Extremity: Normal Inspection, Non Tender, No Pedal Edema Neurologic/Psychiatric: Alert, Oriented x3 Skin: Normal Color, Warm/Dry Lymphatic: No Adenopathy Results Lab Laboratory Tests 10/09/20 19:36 10/10/20 03:20 10/11/20 04:07 Assessment/Plan Assessment/Plan (Tele-ICU Physician , Progress Note ) Available chart/ vitals / labs / Images reviewed Video assessment done using teleICU camera, rest of exam as per RN Discussed with RN Events overnight : none Afebrile I/O = pos 400 Drips: Pressors: , hemodynamically stable EXAM PER RN Consultants: Hospital course: 10/10 - admitted with COVID , AHRF-HFNC 25L/ 50% A/P AHRF / ARDS due to severe COVID19 ( no PE on CT 8/ -prone position if able - conservative fluid strategy (aim for even or negative fluid balance IMPROVED - ON 6L NC TODAY REGN-Ldunudgrvqu-6/COVID-19 PNA ( symptoms >2 weeks , Dx 10/09 , not vaccinated ) -NOT on Remdesivir -Steroids IV - started -Hypercoagulable state , DDIMER neg 10/09, no evidence of large PE on CT 10/09 - with h/o PE stated on full dose lovenox - CONSIDER TO FOLLOW DDIMER / SURVELANCE US LE AND USE PROPH DOSE LOVENOX Superimposed bact PNA ( with elev PCT -cefepime 10/10 H/o PE in past -on lovenox full dose Hyperglycemia - ISS , close f/up on steroids MONROY this am - ct head - no acute findings Lines : periph (Central Line Necessity Reviewed) Garza: OG: Nutrition: PO Analgesia: Anxiety/ delirium na VTE Prophylaxis: full lovenox Stress Ulcer Prophylaxis: PPI Glycemic Control: + Plans in collaboration with bedside consultants and IM MDs. Discussed with RN to reach out if any questions or concerns Discussed with Dr Baxter A total of 25 minutes of critical care time was devoted to this patient today, required to treat and/or prevent further deterioration of critical care condition ( as above) . SYLVIA BREEN MD Oct 11, 2020 11:56
[2020-10-11] MEDS: AZITHROMYCIN INJECTION 500 MG in NS (IVPB) 250 ML IV SCH (21:47)
[2020-10-11] MEDS: cefTRIAXone 1,000 MG in WATER (STERILE) FOR INJECTION 10 ML IV SCH (21:47)
[2020-10-12] MEDS: RT-ALBUTEROL HFA 8.5 GM INHALER IH SCH ×4 (02:24→22:26)
[2020-10-12 04:12] LABS: BASOPHILS % (AUTO) 0 % (0-10); EOSINOPHILS % (AUTO) 0 % (0-10); HEMATOCRIT 39 % (35-52); HEMOGLOBIN 12.4 g/dL (11.5-16.0); LYMPHOCYTES % (AUTO) 10 % (12-44); MEAN CORPUSCULAR HEMOGLOBIN 31 pg (25-34); MEAN CORPUSCULAR HGB CONC 32 g/dL (32-36); MEAN CORPUSCULAR VOLUME 97 fL (80-99); MONOCYTES # (AUTO) 0.3 10^3/uL (0.0-1.0); MONOCYTES % (AUTO) 3 % (0-12); NEUTROPHILS # (AUTO) 8.8 10^3/uL (1.8-7.8); NEUTROPHILS % (AUTO) 86 % (42-75); PLATELET COUNT 336 10^3/uL (130-400); WHITE BLOOD COUNT 10.2 10^3/uL (4.3-11.0)
[2020-10-12 04:22] LABS: POTASSIUM 3.6 MMOL/L (3.6-5.0)
[2020-10-12 04:24] LABS: CALCIUM 8.8 MG/DL (8.5-10.1)
[2020-10-12 04:28] LABS: CREATININE SERUM 0.74 MG/DL (0.60-1.30); PHOSPHORUS 1.5 MG/DL (2.3-4.7)
[2020-10-12 04:30] LABS: MAGNESIUM 2.3 MG/DL (1.6-2.4)
[2020-10-12] MEDS: POTASSIUM CL 10MEQ/50ML IVPB 50 ML IV SCH (05:10)
[2020-10-12] MEDS: KCL 20 MEQ TAB (K-DUR) PO SCH (05:10)
[2020-10-12] MEDS: inSUlin ASPART (NovoLOG) 1 UNIT/0.01 ML (CHARGE PER UNIT) SC SCH ×4 (05:10→20:45)
[2020-10-12] MEDS: MAGNESIUM 1 GM/100 ML IVPB 100 ML IV SCH (05:10)
[2020-10-12] MEDS: PANTOPRAZOLE 40 MG (PROTONIX) VIAL IV SCH (09:00)
[2020-10-12] MEDS ORDERED: KCL 20 MEQ TAB (K-DUR) PO ONE (09:00)
[2020-10-12] MEDS: BARICITINIB 2 MG (OLUMIANT)TABLET PO SCH (09:01)
[2020-10-12] MEDS: ENOXAPARIN 40 MG/0.4 ML (LOVENOX) SYR SQ SCH (09:02)
--- NOTE | 2020-10-12 09:07 | Tele-ICU Progress Note ---
Subjective Date Seen by a Provider: Oct 12, 2020 Time Seen by a Provider: 09:07 Sepsis Event Evaluation Height, Weight, BMI Height: '" Weight: lbs. oz. kg; 33.31 BMI Method: Focused Exam Lactate Level 10/09/20 19:36: Lactic Acid Level 1.49 Exam Exam Patient acknowledged, consented, and participated in this virtual visit which was conducted using real time audio/video Vital Signs Date Time Temp Pulse Resp B/P (MAP) Pulse Ox O2 Delivery O2 Flow Rate FiO2 10/12/20 08:50 94 High Flow N/C 6.00 10/12/20 08:00 47 100/59 (73) 96 Nasal Cannula 6.00 10/12/20 07:00 47 87/49 (62) 91 Nasal Cannula 6.00 10/12/20 07:00 44 10/12/20 06:00 48 80/54 (63) 95 Nasal Cannula 6.00 10/12/20 05:00 44 96/54 (68) 99 Nasal Cannula 6.00 10/12/20 04:00 48 92/55 (67) 99 Nasal Cannula 6.00 10/12/20 04:00 36.2 10/12/20 04:00 97 High Flow N/C 6.00 10/12/20 03:00 52 102/58 (73) 97 Nasal Cannula 6.00 10/12/20 02:24 94 High Flow N/C 6.00 10/12/20 02:00 45 97/52 (67) 94 Nasal Cannula 6.00 10/12/20 01:00 44 100/54 (69) 97 Nasal Cannula 6.00 10/12/20 01:00 44 10/12/20 00:00 36.4 10/12/20 00:00 98 High Flow N/C 6.00 10/12/20 00:00 51 99/61 (74) 99 Nasal Cannula 6.00 10/11/20 23:13 59 106/66 (79) 98 Nasal Cannula 6.00 10/11/20 23:00 52 83/47 (59) 97 Nasal Cannula 6.00 10/11/20 22:00 60 104/65 (78) 92 Nasal Cannula 6.00 10/11/20 21:38 92 High Flow N/C 6.00 10/11/20 21:15 48 102/55 (71) 99 Nasal Cannula 6.00 8/24/21 20:15 50 99/52 (68) 98 Nasal Cannula 6.00 10/11/20 20:00 96 High Flow N/C 6.00 10/11/20 20:00 36.2 10/11/20 19:55 48 94/53 (67) 98 Nasal Cannula 6.00 10/11/20 19:00 62 10/11/20 16:00 97 Vapotherm 6.00 10/11/20 15:30 35.8 10/11/20 13:45 94 High Flow N/C 6.00 10/11/20 13:45 54 113/67 (82) 96 Nasal Cannula 6.00 10/11/20 13:14 35.6 10/11/20 12:44 55 10/11/20 12:28 95 Vapotherm 6.00 10/11/20 09:46 Nasal Cannula 6.00 10/11/20 09:10 Nasal Cannula 6.00 I & O 10/12/20 07:00 Intake Total 875 ml Output Total 1135 ml Balance -260 ml Height & Weight Height: '" Weight: lbs. oz. kg; 33.31 BMI Method: General Appearance: Anxious, Obese HEENT: PERRL/EOMI, Pharynx Normal Neck: Normal Inspection, Supple Respiratory: Decreased Breath Sounds, Rhonci, Other (tachypneic) Cardiovascular: Regular Rate, Rhythm, No Murmur Capillary Refill: Less Than 3 Seconds Extremity: Normal Inspection, Non Tender, No Pedal Edema Neurologic/Psychiatric: Alert, Oriented x3 Skin: Normal Color, Warm/Dry Lymphatic: No Adenopathy Results Lab Laboratory Tests 10/11/20 04:07 10/12/20 03:50 Assessment/Plan Assessment/Plan (Tele-ICU Physician , Progress Note ) Available chart/ vitals / labs / Images reviewed Video assessment done using teleICU camera, rest of exam as per RN Discussed with RN Events overnight : cont on vapotherm Afebrile i/o - [id number] ml Drips: Pressors: , hemodynamically stable EXAM PER RN Consultants: Hospital course: 10/05 with AHRF -COVID, VAPOTHERM 25L 70 % 10/06 - INCREASED 2 - vapotherm 40L 90% 10/10 - Alternating BiPAP16/6 45% and VT 40LPM/100%. 10/11 - vapotherm 35L 65% 10/12- vapotherm 35L 50 % Consultants: A/P AHRF / ARDS due to severe COVID19 ( no evidence of large PE on CT 10/05 ) Alternating BiPAP14/8 50 % and VT -IMPROVED TODAY : vapotherm 35L 50 % - EXTRA DOSE STEROIDS x1 10/10 -prone position if able - conservative fluid strategy (aim for even or negative fluid balance with elev BNP KMXR-Pxksnywsfqw-6/COVID-19 infection ( symptoms 10/02 , Dx 10/05 ) -Remdesivir -Steroids IV - started 10/05 , EXTRA DOSE STEROIDS x1 10/10 -as per RN exam - very diminished and "no ir flow" on exam - IMPROVED -Hypercoagulable state , DDIMER 0.7 on 10/05 -> lovenox ppx dose , D dimer 10/11 - LOW ( no evidence of large PE on CT 10/05 ) Suspected superimposed bact PNA -empiric abx ( cefepime ) started on 10/05 Cx sputum blood cultures growing staph hominis- flor-sensitive- hyperglycemia - ISS , close f/up on steroids 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 Discussed with RN to reach out if any questions or concerns A total of 36 minutes of critical care time was devoted to this patient today, required to treat and/or prevent further deterioration of critical care condition ( as above) SYLVIA BREEN MD Oct 12, 2020 09:07
[2020-10-12] MEDS: POT PHOS/NA PHOS (K-PHOS NEUTRAL) PO SCH ×2 (09:28→20:45)
--- NOTE | 2020-10-12 09:44 | Progress Note - Hospitalist ---
Subjective HPI/CC On Admission Date Seen by Provider: Oct 12, 2020 Time Seen by Provider: 09:40 Megha Gallagher is a 64 year old female who presented with shortness of breath. She does not follow with a doctor. She does not take any medications regularly. She has been sick for almost two weeks. She has had fevers. She has had a cough. She reports body aches. Her has been sick also, but is doing better than her. Her anabaptist friends have also been sick. She has been taking Hydroxychloroquine and Ivermectin that she got from a "friend". She is unvaccinated. She has a history of pulmonary embolism but no longer takes blood thinners. She thinks she got the blood clot after a knee surgery. Subjective/Events-last exam Pt reports feeling "crummy." States a nurse checked on ehr heart rate last night and it made her very anxious. Assured her we are monitoring her heart rate continuously and that COVID can cause bradycardia. She denied any symptoms. Focused Exam Lactate Level 10/09/20 19:36: Lactic Acid Level 1.49 Objective Exam Vital Signs Vital Signs Date Time Temp Pulse Resp B/P (MAP) Pulse Ox O2 Delivery O2 Flow Rate FiO2 10/12/20 08:50 94 High Flow N/C 6.00 10/12/20 08:00 47 100/59 (73) 10/12/20 04:00 36.2 10/11/20 09:00 13 10/11/20 08:00 45 Capillary Refill : Less Than 3 Seconds General Appearance: No Apparent Distress, Anxious Respiratory: No Respiratory Distress Cardiovascular: No Murmur, Bradycardia (57) Gastrointestinal: Normal Bowel Sounds, Non Tender, Soft Neurologic/Psychiatric: Alert, Oriented x3 Results/Procedures Lab Laboratory Tests 10/12/20 03:50 Patient resulted labs reviewed. Imaging: Reviewed Imaging Report Assessment/Plan Assessment and Plan Assess & Plan/Chief Complaint Acute respiratory failure due to COVID-19 Lymphopenia associated with COVID-19- resolved Secondary bacterial pneumonia Hypercoagulable state associated with COVID-19 bradycardia COVID+ on arrival CXR consistent with COVID pneumonia Procalcitonin elevated, minimally though Continue on Rocpehin and Azithromycin Ddimer elevated, history of PE Lovenox Decadron Continue Baricitinib RDown to 6lpm HFNC ativan prn anxiety telemetry IS MAT protocol Headache- resolved Negative CT head Obesity Clinically significant, no acute management needs DVt ppx: Lovenox as above GI ppx: Protonix Critical Care Critically Ill Patient BRIAN GARZA MD Oct 12, 2020 09:44
--- NOTE | 2020-10-12 11:34 | Tele-ICU Progress Note ---
Subjective Date Seen by a Provider: Oct 12, 2020 Time Seen by a Provider: 11:33 Sepsis Event Evaluation Height, Weight, BMI Height: '" Weight: lbs. oz. kg; 33.31 BMI Method: Focused Exam Lactate Level 10/09/20 19:36: Lactic Acid Level 1.49 Exam Exam Patient acknowledged, consented, and participated in this virtual visit which was conducted using real time audio/video Vital Signs Date Time Temp Pulse Resp B/P (MAP) Pulse Ox O2 Delivery O2 Flow Rate FiO2 10/12/20 10:00 53 53 106/63 (77) 100 Nasal Cannula 6.00 10/12/20 09:00 61 105/61 (76) 91 Nasal Cannula 6.00 10/12/20 08:50 94 High Flow N/C 6.00 10/12/20 08:00 94 High Flow N/C 6.00 10/12/20 08:00 35.9 10/12/20 08:00 47 100/59 (73) 96 Nasal Cannula 6.00 10/12/20 07:00 47 87/49 (62) 91 Nasal Cannula 6.00 10/12/20 07:00 44 10/12/20 06:00 48 80/54 (63) 95 Nasal Cannula 6.00 10/12/20 05:00 44 96/54 (68) 99 Nasal Cannula 6.00 10/12/20 04:00 48 92/55 (67) 99 Nasal Cannula 6.00 10/12/20 04:00 36.2 10/12/20 04:00 97 High Flow N/C 6.00 10/12/20 03:00 52 102/58 (73) 97 Nasal Cannula 6.00 10/12/20 02:24 94 High Flow N/C 6.00 10/12/20 02:00 45 97/52 (67) 94 Nasal Cannula 6.00 10/12/20 01:00 44 100/54 (69) 97 Nasal Cannula 6.00 10/12/20 01:00 44 10/12/20 00:00 36.4 10/12/20 00:00 98 High Flow N/C 6.00 10/12/20 00:00 51 99/61 (74) 99 Nasal Cannula 6.00 10/11/20 23:13 59 106/66 (79) 98 Nasal Cannula 6.00 10/11/20 23:00 52 83/47 (59) 97 Nasal Cannula 6.00 10/11/20 22:00 60 104/65 (78) 92 Nasal Cannula 6.00 10/11/20 21:38 92 High Flow N/C 6.00 10/11/20 21:15 48 102/55 (71) 99 Nasal Cannula 6.00 10/11/20 20:15 50 99/52 (68) 98 Nasal Cannula 6.00 10/11/20 20:00 96 High Flow N/C 6.00 10/11/20 20:00 36.2 10/11/20 19:55 48 94/53 (67) 98 Nasal Cannula 6.00 10/11/20 19:00 62 10/11/20 16:00 97 Vapotherm 6.00 10/11/20 15:30 35.8 10/11/20 13:45 94 High Flow N/C 6.00 10/11/20 13:45 54 113/67 (82) 96 Nasal Cannula 6.00 10/11/20 13:14 35.6 10/11/20 12:44 55 10/11/20 12:28 95 Vapotherm 6.00 I & O 10/12/20 07:00 Intake Total 875 ml Output Total 1135 ml Balance -260 ml Height & Weight Height: '" Weight: lbs. oz. kg; 33.31 BMI Method: General Appearance: No Apparent Distress, Anxious HEENT: PERRL/EOMI, Pharynx Normal Neck: Normal Inspection, Supple Respiratory: No Respiratory Distress Cardiovascular: No Murmur, Bradycardia (57) Capillary Refill: Less Than 3 Seconds Extremity: Normal Inspection, Non Tender, No Pedal Edema Neurologic/Psychiatric: Alert, Oriented x3 Skin: Normal Color, Warm/Dry Lymphatic: No Adenopathy Results Lab Laboratory Tests 10/11/20 04:07 10/12/20 03:50 Assessment/Plan Assessment/Plan (Tele-ICU Physician , Progress Note ) Available chart/ vitals / labs / Images reviewed Video assessment done using teleICU camera, rest of exam as per RN Discussed with RN Events overnight : none Afebrile I/O = pos 400 Drips: Pressors: , hemodynamically stable EXAM PER RN Consultants: Hospital course: 10/10 - admitted with COVID , AHRF-HFNC 25L/ 50% A/P AHRF / ARDS due to severe COVID19 ( no PE on CT 8/ -prone position if able - conservative fluid strategy (aim for even or negative fluid balance IMPROVED - ON 6L NC TODAY OXNP-Cqrwtxllgux-1/COVID-19 PNA ( symptoms >2 weeks , Dx 10/09 , not vaccinated ) -NOT on Remdesivir -Steroids IV - started -Hypercoagulable state , DDIMER neg 10/09, no evidence of large PE on CT 10/09 - with h/o PE stated on full dose lovenox - repeated ddimer WNL - IF NO OTHER INDICATION TO BE ON ANTICOAGULATION - CONSIDER TO FOLLOW DDIMER / SURVELANCE US LE AND USE PROPH DOSE LOVENOX Superimposed bact PNA ( with elev PCT -cefepime- z max - 10/10- 10/13 H/o PE in past -on lovenox full dose Hyperglycemia - ISS , close f/up on steroids MONROY this am - ct head - no acute findings Lines : periph (Central Line Necessity Reviewed) Garza: OG: Nutrition: PO Analgesia: Anxiety/ delirium na VTE Prophylaxis: full lovenox Stress Ulcer Prophylaxis: PPI Glycemic Control: + Plans in collaboration with bedside consultants and IM MDs. Discussed with RN to reach out if any questions or concerns Discussed with Dr Baxter A total of 25 minutes of critical care time was devoted to this patient today, required to treat and/or prevent further deterioration of critical care condition ( as above) . SYLVIA BREEN MD Oct 12, 2020 11:34
--- NOTE | 2020-10-12 12:47 | Consultation-Cardiology ---
HPI-Cardiology Cardiology Consultation: Date of Consultation 10/12/20 Time Seen by a Provider: 09:15 Date of Admission Attending Physician Astrid Robbins MD Admitting Physician Claudy Muller MD Consulting Physician LIZ RICKS MD, MA, FACP, FACC, FSCAI, CCDS Physician requesting consult: Dr. Baxter HPI: Chief Complaint: Reason for Cardiology consultation: Chest discomfort HPI 64 yo man admitted to Dr Robbins/[facility] with COVID-19 pneumonia. She has had profound coughing bouts. Has had lower midsternal pain and left lower rib cage pain lasting 1/2 hour or more, usually after coughing bouts, worse during coughi ng, unaffected by deep breathing, non-radiating, w/o other associated symptoms, not experienced previous to this illness. Has moderate shortness of breath and marked gen malaise and weakness. No n/v/d. Review of Systems-Cardiology Review of Systems Constitutional: As described under HPI Eyes: No vision change Ears/Nose/Throat: No ear discharge, No nasal drainage, No recent hearing loss Respiratory: As described under HPI Cardiovascular: As described under HPI Gastrointestinal: As described under HPI Genitourinary: No dysuria, No hematuria, No urine frequency changes Musculoskeletal: other (gen body pain) Skin: No rash, No ulcerations Psychiatric/Neurological: No seizure, No focal weakness, No syncope Hematologic: No bleeding abnormalities FRK-Chjueq-Hkeafx Hx Patient Social History Smoking Status: Never a Smoker Have you traveled recently?: No Alcohol Use?: No Pt feels they are or have been: No Past Medical History PMH As described under Assessment. Family Medical History Family Medical History: She does not report fam h/o early CAD or SCD Allergies and Home Medications Allergies Coded Allergies: fentanyl (Unverified Allergy, Unknown, 04/07/19) Home Medications No Active Prescriptions or Reported Meds Patient Home Medication List Home Medication List Reviewed: Yes Physical Exam-Cardiology Physical Exam Vital Signs/I&O 10/12/20 10/12/20 10/12/20 10/12/20 01:00 01:00 02:00 02:24 Pulse 44 44 45 B/P (MAP) 100/54 (69) 97/52 (67) Pulse Ox 97 94 94 O2 Delivery Nasal Cannula Nasal Cannula High Flow N/C O2 Flow Rate 6.00 6.00 6.00 10/12/20 10/12/20 10/12/20 10/12/20 03:00 04:00 04:00 04:00 Temp 36.2 Pulse 52 48 B/P (MAP) 102/58 (73) 92/55 (67) Pulse Ox 97 97 99 O2 Delivery Nasal Cannula High Flow N/C Nasal Cannula O2 Flow Rate 6.00 6.00 6.00 10/12/20 10/12/20 10/12/20 10/12/20 05:00 06:00 07:00 07:00 Pulse 44 48 44 47 B/P (MAP) 96/54 (68) 80/54 (63) 87/49 (62) Pulse Ox 99 95 91 O2 Delivery Nasal Cannula Nasal Cannula Nasal Cannula O2 Flow Rate 6.00 6.00 6.00 10/12/20 10/12/20 10/12/20 10/12/20 08:00 08:00 08:00 08:50 Temp 35.9 Pulse 47 B/P (MAP) 100/59 (73) Pulse Ox 96 94 94 O2 Delivery Nasal Cannula High Flow N/C High Flow N/C O2 Flow Rate 6.00 6.00 6.00 10/12/20 10/12/20 09:00 10:00 Pulse 61 53 Resp 53 B/P (MAP) 105/61 (76) 106/63 (77) Pulse Ox 91 100 O2 Delivery Nasal Cannula Nasal Cannula O2 Flow Rate 6.00 6.00 10/12/20 00:00 Intake Total 815 ml Output Total 735 ml Balance 80 ml Capillary Refill : Less Than 3 Seconds Constitutional: AAO x 3, well-developed, well-nourished HEENT: PERRL, EOMI, hearing is well preserved Neck: carotid pulses are 2 + bilaterally Respiratory: No accessory muscle use; other (fair air entry, scattered rhonchi, basal coarse crackles) Cardiovascular: regular rate-rhythm, S1 and S2, systolic murmur (faint HORTENCIA at card base) Gastrointestinal: No tender; soft; No guarding, No rebound; audible bowel sounds Extremities: No clubbing, No cyanosis, No significant edema Neurologic/Psychiatric: oriented x 3, other (moves all limbs equally) Skin: No rash, No ulcerations Data Review Labs Laboratory Tests 10/11/20 15:07: Troponin I < 0.028 10/11/20 15:31: Glucometer 163H 10/11/20 21:25: Glucometer 202H 10/12/20 03:50: White Blood Count 10.2, Red Blood Count 4.03, Hemoglobin 12.4, Hematocrit 39, Mean Corpuscular Volume 97, Mean Corpuscular Hemoglobin 31, Mean Corpuscular Hemoglobin Concent 32, Red Cell Distribution Width 13.8, Platelet Count 336, Mean Platelet Volume 10.0, Immature Granulocyte % (Auto) 1, Neutrophils (%) (Auto) 86H, Lymphocytes (%) (Auto) 10L, Monocytes (%) (Auto) 3, Eosinophils (%) (Auto) 0, Basophils (%) (Auto) 0, Neutrophils # (Auto) 8.8H, Lymphocytes # (Auto) 1.0, Monocytes # (Auto) 0.3, Eosinophils # (Auto) 0.0, Basophils # (Auto) 0.0, Immature Granulocyte # (Auto) 0.1, Sodium Level 143, Potassium Level 3.6, Chloride Level 110H, Carbon Dioxide Level 23, Anion Gap 10, Blood Urea Nitrogen 8, Creatinine 0.74, Estimat Glomerular Filtration Rate 79, BUN/Creatinine Ratio 11, Glucose Level 142H, Calcium Level 8.8, Phosphorus Level 1.5L, Magnesium Level 2.3 10/12/20 08:58: Glucometer 129H 10/12/20 11:39: Glucometer 153H Microbiology 10/09/20 MRSA Screen - Final, Complete MRSA not isolated 10/09/20 Urine Culture - Final, Complete NO GROWTH 10/09/20 Blood Culture - Preliminary, Resulted Staph, Coag Neg (BAND NAILER) Laboratory Tests 10/11/20 04:07 10/12/20 03:50 A/P-Cardiology Assessment/Admission Diagnosis Chest discomfort w/o any evidence of ACS, likely musculoskeletal COVID-19 pneumonia Sinus aldo, intermittent, likely COVID-19- and steroid-related Discussion and Recomendations * Continue to monitor * COVID-19 management is by the Hospitalist and ICU services LIZ RICKS MD FACP [facility] CCDS Oct 12, 2020 12:47
[2020-10-12] MEDS: AZITHROMYCIN INJECTION 500 MG in NS (IVPB) 250 ML IV SCH (20:45)
[2020-10-12] MEDS: cefTRIAXone 1,000 MG in WATER (STERILE) FOR INJECTION 10 ML IV SCH (20:45)
[2020-10-12] MEDS: ACETAMINOPHEN 500 MG TAB (TYLENOL) PO PRN (20:58)
[2020-10-13] MEDS: RT-ALBUTEROL HFA 8.5 GM INHALER IH SCH ×4 (02:31→22:04)
[2020-10-13 03:43] LABS: BASOPHILS % (AUTO) 0 % (0-10); EOSINOPHILS % (AUTO) 0 % (0-10); HEMATOCRIT 37 % (35-52); HEMOGLOBIN 11.9 g/dL (11.5-16.0); LYMPHOCYTES # (AUTO) 0.8 10^3/uL (1.0-4.0); LYMPHOCYTES % (AUTO) 13 % (12-44); MEAN CORPUSCULAR HEMOGLOBIN 31 pg (25-34); MEAN CORPUSCULAR HGB CONC 32 g/dL (32-36); MEAN CORPUSCULAR VOLUME 98 fL (80-99); MEAN PLATELET VOLUME 10.2 fL (9.0-12.2); MONOCYTES # (AUTO) 0.2 10^3/uL (0.0-1.0); MONOCYTES % (AUTO) 4 % (0-12); NEUTROPHILS # (AUTO) 5.2 10^3/uL (1.8-7.8); NEUTROPHILS % (AUTO) 82 % (42-75); PLATELET COUNT 320 10^3/uL (130-400); WHITE BLOOD COUNT 6.4 10^3/uL (4.3-11.0)
[2020-10-13 03:57] LABS: CALCIUM 8.4 MG/DL (8.5-10.1)
[2020-10-13 04:02] LABS: CREATININE SERUM 0.68 MG/DL (0.60-1.30); PHOSPHORUS 1.8 MG/DL (2.3-4.7)
[2020-10-13 04:04] LABS: MAGNESIUM 2.3 MG/DL (1.6-2.4)
[2020-10-13] MEDS: POTASSIUM CL 10MEQ/50ML IVPB 50 ML IV SCH (06:19)
[2020-10-13] MEDS: KCL 20 MEQ TAB (K-DUR) PO SCH (06:19)
[2020-10-13] MEDS: MAGNESIUM 1 GM/100 ML IVPB 100 ML IV SCH (06:19)
[2020-10-13] MEDS: inSUlin ASPART (NovoLOG) 1 UNIT/0.01 ML (CHARGE PER UNIT) SC SCH ×4 (06:20→20:25)
[2020-10-13] MEDS: PANTOPRAZOLE 40 MG (PROTONIX) VIAL IV SCH (09:09)
[2020-10-13] MEDS: BARICITINIB 2 MG (OLUMIANT)TABLET PO SCH (09:09)
[2020-10-13] MEDS: ENOXAPARIN 40 MG/0.4 ML (LOVENOX) SYR SQ SCH (09:10)
[2020-10-13] MEDS: POT PHOS/NA PHOS (K-PHOS NEUTRAL) PO SCH ×2 (09:10→20:35)
--- NOTE | 2020-10-13 09:32 | Progress Note - Hospitalist ---
Subjective HPI/CC On Admission Date Seen by Provider: Oct 13, 2020 Time Seen by Provider: 09:30 Megha Gallagher is a 64 year old female who presented with shortness of breath. She does not follow with a doctor. She does not take any medications regularly. She has been sick for almost two weeks. She has had fevers. She has had a cough. She reports body aches. Her has been sick also, but is doing better than her. Her confucianism friends have also been sick. She has been taking Hydroxychloroquine and Ivermectin that she got from a "friend". She is unvaccinated. She has a history of pulmonary embolism but no longer takes blood thinners. She thinks she got the blood clot after a knee surgery. Subjective/Events-last exam Pt reports feeling better but still not well yet. She had an episode of anxiety again this morning where he arms were shaking too. Offered ativan but she declined as it has resolved now. Objective Exam Vital Signs Vital Signs Date Time Temp Pulse Resp B/P (MAP) Pulse Ox O2 Delivery O2 Flow Rate FiO2 10/13/20 08:33 90 Nasal Cannula 1.00 10/13/20 08:00 35.6 10/13/20 04:00 45 101/60 (74) 10/12/20 10:00 53 10/11/20 08:00 45 Capillary Refill : Less Than 3 Seconds General Appearance: No Apparent Distress, Other (appears to feel poorly) Respiratory: Lungs Clear, No Respiratory Distress, Other (on 2lpm) Cardiovascular: Regular Rate, Rhythm, No Murmur Gastrointestinal: Normal Bowel Sounds, Non Tender, Soft Neurologic/Psychiatric: Alert, Oriented x3 Results/Procedures Lab Laboratory Tests 10/13/20 03:12 Patient resulted labs reviewed. Imaging: Reviewed Imaging Report Assessment/Plan Assessment and Plan Assess & Plan/Chief Complaint Acute respiratory failure due to COVID-19 Lymphopenia associated with COVID-19- resolved Secondary bacterial pneumonia Hypercoagulable state associated with COVID-19 bradycardia COVID+ on arrival CXR consistent with COVID pneumonia Procalcitonin elevated, minimally though Continue on Rocpehin and Azithromycin Ddimer elevated, history of PE Lovenox Decadron Continue Baricitinib Down to2lpm- transfer to floor when bed available ativan prn anxiety telemetry for mild bradycardia IS MAT protocol Headache- resolved Negative CT head Obesity Clinically significant, no acute management needs DVt ppx: Lovenox as above GI ppx: Protonix Critical Care Critically Ill Patient BRIAN GARZA MD Oct 13, 2020 09:32
[2020-10-13] MEDS: ACETAMINOPHEN 500 MG TAB (TYLENOL) PO PRN (13:24)
[2020-10-13] MEDS: cefTRIAXone 1,000 MG in WATER (STERILE) FOR INJECTION 10 ML IV SCH (20:34)
[2020-10-13] MEDS: AZITHROMYCIN INJECTION 500 MG in NS (IVPB) 250 ML IV SCH (20:35)
[2020-10-14] MEDS: RT-ALBUTEROL HFA 8.5 GM INHALER IH SCH ×3 (03:32→18:50)
[2020-10-14] MEDS: POTASSIUM CL 10MEQ/50ML IVPB 50 ML IV SCH (05:29)
[2020-10-14] MEDS: inSUlin ASPART (NovoLOG) 1 UNIT/0.01 ML (CHARGE PER UNIT) SC SCH ×4 (05:29→21:01)
[2020-10-14 06:30] LABS: BASOPHILS % (AUTO) 0 % (0-10); EOSINOPHILS % (AUTO) 0 % (0-10); HEMATOCRIT 38 % (35-52); HEMOGLOBIN 12.2 g/dL (11.5-16.0); LYMPHOCYTES # (AUTO) 0.8 10^3/uL (1.0-4.0); LYMPHOCYTES % (AUTO) 16 % (12-44); MEAN CORPUSCULAR HEMOGLOBIN 31 pg (25-34); MEAN CORPUSCULAR HGB CONC 32 g/dL (32-36); MEAN CORPUSCULAR VOLUME 98 fL (80-99); MEAN PLATELET VOLUME 9.9 fL (9.0-12.2); MONOCYTES # (AUTO) 0.2 10^3/uL (0.0-1.0); MONOCYTES % (AUTO) 4 % (0-12); NEUTROPHILS # (AUTO) 3.8 10^3/uL (1.8-7.8); NEUTROPHILS % (AUTO) 79 % (42-75); PLATELET COUNT 331 10^3/uL (130-400); WHITE BLOOD COUNT 4.8 10^3/uL (4.3-11.0)
[2020-10-14 06:44] LABS: POTASSIUM 3.4 MMOL/L (3.6-5.0)
[2020-10-14 06:46] LABS: CALCIUM 8.3 MG/DL (8.5-10.1)
[2020-10-14 06:50] LABS: CREATININE SERUM 0.66 MG/DL (0.60-1.30); PHOSPHORUS 1.6 MG/DL (2.3-4.7)
[2020-10-14 06:52] LABS: MAGNESIUM 2.3 MG/DL (1.6-2.4)
[2020-10-14] MEDS: MAGNESIUM 1 GM/100 ML IVPB 100 ML IV SCH (06:58)
[2020-10-14] MEDS: KCL 20 MEQ TAB (K-DUR) PO SCH (06:59)
[2020-10-14] MEDS: BARICITINIB 2 MG (OLUMIANT)TABLET PO SCH (08:29)
[2020-10-14] MEDS: ENOXAPARIN 40 MG/0.4 ML (LOVENOX) SYR SQ SCH (08:29)
[2020-10-14] MEDS: ACETAMINOPHEN 500 MG TAB (TYLENOL) PO PRN ×2 (08:30→15:20)
[2020-10-14] MEDS: PANTOPRAZOLE 40 MG (PROTONIX) TAB PO SCH (08:31)
[2020-10-14] MEDS ORDERED: KCL 20 MEQ TAB (K-DUR) PO ONE (09:00)
[2020-10-14 12:00] VITALS: BP 113/81
--- NOTE | 2020-10-14 12:58 | Progress Note - Hospitalist ---
Subjective HPI/CC On Admission Date Seen by Provider: Oct 14, 2020 Time Seen by Provider: 12:54 Megha Gallagher is a 64 year old female who presented with shortness of breath. She does not follow with a doctor. She does not take any medications regularly. She has been sick for almost two weeks. She has had fevers. She has had a cough. She reports body aches. Her has been sick also, but is doing better than her. Her sabianism friends have also been sick. She has been taking Hydroxychloroquine and Ivermectin that she got from a "friend". She is unvaccinated. She has a history of pulmonary embolism but no longer takes blood thinners. She thinks she got the blood clot after a knee surgery. Subjective/Events-last exam Pt reports feeling better today. Has a headache but no other complaints at this time. Off oxygen. Objective Exam Vital Signs Vital Signs Date Time Temp Pulse Resp B/P (MAP) Pulse Ox O2 Delivery O2 Flow Rate FiO2 10/14/20 12:00 37.0 86 87 32 10/14/20 08:00 18 112/60 (77) Nasal Cannula 1.00 Capillary Refill : Less Than 3 Seconds General Appearance: No Apparent Distress, WD/WN Respiratory: Lungs Clear, No Respiratory Distress Cardiovascular: Regular Rate, Rhythm, No Murmur Gastrointestinal: Normal Bowel Sounds, Non Tender, Soft Neurologic/Psychiatric: Alert, Oriented x3 Results/Procedures Lab Laboratory Tests 10/14/20 06:17 Patient resulted labs reviewed. Imaging: Reviewed Imaging Report Assessment/Plan Assessment and Plan Assess & Plan/Chief Complaint Acute respiratory failure due to COVID-19 Lymphopenia associated with COVID-19- resolved Secondary bacterial pneumonia Hypercoagulable state associated with COVID-19 bradycardia COVID+ on arrival CXR consistent with COVID pneumonia Procalcitonin elevated, minimally though Continue on Rocephin and Azithromycin Ddimer elevated, history of PE Lovenox Decadron Continue Baricitinib until DC Currently on room air ativan prn anxiety telemetry for mild bradycardia IS MAT protocol Headache- resolved Negative CT head Obesity Clinically significant, no acute management needs DVt ppx: Lovenox as above GI ppx: Protonix Critical Care Critically Ill Patient BRIAN GARZA MD Oct 14, 2020 12:58
--- NOTE | 2020-10-14 14:13 | Physical Therapy Evaluation ---
PT Evaluation-General Medical Diagnosis Admission Date Oct 09, 2020 at 21:55 Medical Diagnosis: Covid/respiratory failure Onset Date: Oct 09, 2020 Therapy Diagnosis Therapy Diagnosis: debility/weakness Precautions Precautions/Isolations: Airborne Isolation Referral Physician: [facility] Reason for Referral: Evaluation/Treatment Medical History Additional Medical History does not go to the doctor. Current History EMS secondary to ill at home x 2 weeks with Covid symptoms. Spouse ill as well. Reviewed History: Yes Social History Home: Single Level Current Living Status: Spouse Prior Prior Level of Function SCALE: Activities may be completed with or without assistive devices. 7-Xtewoqqjwv-jorumeb completes the activity by him/herself with no assistance from a helper. 5-Set-up or Clean-up Assistance-helper sets up or cleans up; patient completes activity. [place] assists only prior to or following the activity. 4-Supervision or Touching Assistance-helper provides verbal cues and/or touching/steadying and/or contact guard assistance as patient completes activity. Assistance may be provided throughout the activity or intermittently. 3-Partial/Moderate Assistance-helper does LESS THAN HALF the effort. [place] lifts, holds or supports trunk or limbs, but provides less than half the effort. 2-Substantial/Maximal Assistance-helper does MORE THAN HALF the effort. [place] lifts or holds trunk or limbs and provides more than half the effort. 9-Iynvjamtn-oeikwf does ALL the effort. Patient does none of the effort to complete the activity. Or, the assistance of 2 or more helpers is required for the patient to complete the activity. If activity was not attempted, code reason: 7-Patient Refused. 9-Not Applicable-not attempted and the patient did not perform the activity before the current illness, exacerbation or injury. 10-Not Attempted due to Environmental Limitations-(lack of equipment, weather restraints, etc.). 88-Not Attempted due to Medical Conditions or Safety Concerns. Bed Mobility: 6 Transfers (B,C,W/C): 6 Gait: 6 Stairs: 6 Indoor Mobility (Ambulation): Independent Stairs: Independent Prior Devices Use: None PT Evaluation-Current Subjective Patient agrees to PT. Objective Patient Orientation: Normal For Age ROM/Strength ROM Lower Extremities bilateral LE WFL Strength Lower Extremities 4-/5 grossly bilateral LE Integumentary/Posture Bowel Incontinence: No Bladder Incontinence: Garza Cath Posture WFL Neuromuscular (Tone, Coordination, Reflexes) grossly intact Sensory Vision: Functional Hearing: Functional Transfers Lying to Sitting/Side of Bed(Q: 4 Sit to Stand (QC): 4 Chair/Lby-ha-Ggabr Xfer(QC): 4 SBA for safety Gait Does the Patient Walk?: Yes Mode of Locomotion: Walk Anticipated Mode of Locomotion: Walk Walk 10 feet (QC): 4 Walk 50 ft with 2 Turns(QC): 4 Walk 150 ft (QC): 7 Distance: 50' Gait Assistive Device: FWW Comments/Gait Description very slow, steady pace Balance Sitting Static: Normal Sitting Dynamic: Normal Standing Static: Fair Standing Dynamic: Fair Treatment trunk rotation deep breathing exercises initiated Assessment/Needs 64 y.o. female, will benefit from skilled PT to address functional mobility and pulmonary functional with mobility. Patient instructed to increase activity/exercise. Patient holds total body rigid and appears fearful. Rehab Potential: Guarded PT Exercise Scientist Goals Ch[facility] Goals PT [facility] Goals Time Frame: Oct 29, 2020 Roll Left & Right (QC): 6 Sit to Lying (QC): 6 Lying-Sitting on Side/Bed(QC): 6 Sit to Stand (QC): 6 Chair/Nma-ds-Yvutv Xfer(QC): 6 Toilet Transfer (QC): 6 Does the Patient Walk: Yes Walk 10 feet (QC): 6 Walk 50ft with 2 Turns (QC): 6 Walk 150 ft (QC): 6 PT Plan Problem List Problem List: Activity Tolerance Treatment/Plan Treatment Plan: Continue Plan of Care Treatment Plan: Bed Mobility, Education, Functional Activity Panchito, Functional Strength, Gait, Safety, Therapeutic Exercise, Transfers Treatment Duration: Oct 29, 2020 Frequency: 6 times per week Estimated Hrs Per Day: .25 hour per day Patient and/or Family Agrees t: Yes Time/GCodes Time In: 1320 Time Out: 1335 Total Billed Treatment Time: 15 Total Billed Treatment 1 visit EVMod 15 min ZUHAIR HOWE PT Oct 14, 2020 14:13
[2020-10-15 04:20] LABS: BASOPHILS % (AUTO) 0 % (0-10); EOSINOPHILS % (AUTO) 0 % (0-10); HEMATOCRIT 38 % (35-52); HEMOGLOBIN 12.4 g/dL (11.5-16.0); LYMPHOCYTES # (AUTO) 0.8 10^3/uL (1.0-4.0); LYMPHOCYTES % (AUTO) 16 % (12-44); MEAN CORPUSCULAR HEMOGLOBIN 31 pg (25-34); MEAN CORPUSCULAR HGB CONC 33 g/dL (32-36); MEAN CORPUSCULAR VOLUME 95 fL (80-99); MEAN PLATELET VOLUME 10.4 fL (9.0-12.2); MONOCYTES # (AUTO) 0.2 10^3/uL (0.0-1.0); MONOCYTES % (AUTO) 5 % (0-12); NEUTROPHILS # (AUTO) 3.9 10^3/uL (1.8-7.8); NEUTROPHILS % (AUTO) 79 % (42-75); PLATELET COUNT 363 10^3/uL (130-400); WHITE BLOOD COUNT 4.9 10^3/uL (4.3-11.0)
[2020-10-15 04:41] LABS: POTASSIUM 3.9 MMOL/L (3.6-5.0)
[2020-10-15 04:42] LABS: CALCIUM 8.6 MG/DL (8.5-10.1)
[2020-10-15 04:46] LABS: CREATININE SERUM 0.68 MG/DL (0.60-1.30); PHOSPHORUS 1.4 MG/DL (2.3-4.7)
[2020-10-15 04:49] LABS: MAGNESIUM 2.4 MG/DL (1.6-2.4)
[2020-10-15] MEDS: POTASSIUM CL 10MEQ/50ML IVPB 50 ML IV SCH (05:01)
[2020-10-15] MEDS: inSUlin ASPART (NovoLOG) 1 UNIT/0.01 ML (CHARGE PER UNIT) SC SCH ×2 (05:01→11:47)
[2020-10-15] MEDS: MAGNESIUM 1 GM/100 ML IVPB 100 ML IV SCH (05:01)
[2020-10-15] MEDS: KCL 20 MEQ TAB (K-DUR) PO SCH (05:02)
[2020-10-15] MEDS: RT-ALBUTEROL HFA 8.5 GM INHALER IH SCH (06:56)
[2020-10-15] MEDS: BARICITINIB 2 MG (OLUMIANT)TABLET PO SCH (09:59)
[2020-10-15] MEDS: PANTOPRAZOLE 40 MG (PROTONIX) TAB PO SCH (10:00)
[2020-10-15] MEDS: ENOXAPARIN 40 MG/0.4 ML (LOVENOX) SYR SQ SCH (10:00)
[2020-10-15] MEDS: ACETAMINOPHEN 500 MG TAB (TYLENOL) PO PRN (10:07)
--- NOTE | 2020-10-15 11:44 | Discharge Inst-Simple/Standard ---
Discharge Inst-Standard Patient Instructions/Follow Up Plan of Care/Instructions/FU: Please continue to take your medications as written. Please follow up with your primary care doctor to follow up this hospital stay. Activity as Tolerated: Yes Discharge Diet: No Restrictions Return to The Hospital For: Chest pain, shortness of breath, fever, weakness, heart racing, if you feel you are getting worse. BRIAN GARZA MD Oct 15, 2020 11:44
--- NOTE | 2020-10-15 11:48 | Discharge Summary ---
Diagnosis/Chief Complaint Date of Admission Oct 09, 2020 at 21:55 Date of Discharge Discharge Date: Oct 15, 2020 Admission Diagnosis Acute respiratory failure due to COVID-19 Primary Care Claudy Muller MD Discharge Diagnosis (1) Acute respiratory failure due to COVID-19 Status: Acute (2) Pneumonia due to COVID-19 virus Status: Acute (3) Lymphopenia due to COVID-19 virus Status: Acute (4) Hypercoagulable state associated with COVID-19 Status: Acute (5) Secondary bacterial pneumonia Status: Acute (6) Obesity Status: Chronic Discharge Summary Procedures/Consulations TeleICU Discharge Physical Exam Allergies: Coded Allergies: fentanyl (Unverified Allergy, Unknown, 04/07/19) Vitals & I&Os Vital Signs Date Time Temp Pulse Resp B/P (MAP) Pulse Ox O2 Delivery O2 Flow Rate FiO2 10/15/20 11:35 36.0 68 18 114/70 (85) 93 Room Air 10/14/20 12:00 32 10/14/20 08:00 1.00 General Appearance: No Apparent Distress, WD/WN, Obese Respiratory: Lungs Clear, No Respiratory Distress Cardiovascular: Regular Rate, Rhythm, No Murmur Neurologic/Psychiatric: Alert, Oriented x3 Hospital Course Patient was admitted due to acute hypoxic respiratory failure secondary to COVID-19. She was admitted to the ICU when she originally required high flow oxygen through Vapotherm. Due to her high oxygen requirement she was not treated with remdesivir but was treated with baricitinib and Decadron. She did well and was able to be titrated off of oxygen completely. Ambulatory study was done and she had no oxygen requirement prior to discharge. She was discharged home in stable and improved condition and was advised to follow-up with her primary care physician to follow-up this hospital stay and for baseline preventative care including Covid vaccination when able. Labs (last 24 hrs) Laboratory Tests 10/14/20 12:09: Glucometer 125H 10/14/20 15:50: Glucometer 175H 10/14/20 20:51: Glucometer 123H 10/15/20 03:43: White Blood Count 4.9, Red Blood Count 3.97, Hemoglobin 12.4, Hematocrit 38, Mean Corpuscular Volume 95, Mean Corpuscular Hemoglobin 31, Mean Corpuscular Hemoglobin Concent 33, Red Cell Distribution Width 13.6, Platelet Count 363, Mean Platelet Volume 10.4, Immature Granulocyte % (Auto) 1, Neutrophils (%) ( Auto) 79H, Lymphocytes (%) (Auto) 16, Monocytes (%) (Auto) 5, Eosinophils (%) (Auto) 0, Basophils (%) (Auto) 0, Neutrophils # (Auto) 3.9, Lymphocytes # (Auto) 0.8L, Monocytes # (Auto) 0.2, Eosinophils # (Auto) 0.0, Basophils # (Auto) 0.0, Immature Granulocyte # (Auto) 0.1, Sodium Level 141, Potassium Level 3.9, Chloride Level 112H, Carbon Dioxide Level 21, Anion Gap 8, Blood Urea Nitrogen 10, Creatinine 0.68, Estimat Glomerular Filtration Rate 87, BUN/Creatinine Ratio 15, Glucose Level 94, Calcium Level 8.6, Phosphorus Level 1.4L, Magnesium Level 2.4 10/15/20 05:22: Glucometer 81 10/15/20 11:40: Glucometer 139H Microbiology 10/09/20 MRSA Screen - Final, Complete MRSA not isolated 10/09/20 Urine Culture - Final, Complete NO GROWTH 10/09/20 Blood Culture - Preliminary, Resulted Staph, Coag 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 Pending Labs Laboratory Tests 10/15/20 05:22: Glucometer 81 10/15/20 11:40: Glucometer 139 Discussion & Recommendations Discharge Planning: >30 minutes discharge planning Discharge Home Medications: Active Scripts Active No Active Prescriptions or Reported Medications Instructions to patient/family Please see electronic discharge instructions given to patient. BRIAN GARZA MD Oct 15, 2020 11:48
--- NOTE | 2020-10-17 12:42 | Physician Query Clarification ---
PQ-Conflicting Diagnosis Admission/Discharge Admission Date: Oct 09, 2020 at 21:55 Discharge Date: Oct 15, 2020 at 14:25 The medical record reflects the following clinical scenario: History/Risk Factors: Covid, pneumonia Clinical Findings: Covid, respiratory failure, pneumonia Treatment: Decadron, Vapotherm Question: Do you agree with the impression of the ARDS, present on admission per Dr. Nino tele-progress notes. Other notes state acute respiratory failure with hypoxia only. Please document a response in Progress Note or Discharge Summary. 1. Yes 2. No 3. Other, with explanation of clinical findings 4. Clinically undetermined, no explanation for clinical findings. PHYSICIAN RESPONSE Do you agree w/Consulting Dx?: Yes Please remember a lack of response to the above will prompt a phone page by CDI/Coding staff. In responding to this query, please exercise your independent professional judgment. The purpose of this communication is to more accurately reflect the complexity of your patients condition. The fact that a question is asked does not imply that any particular answer is desired or expected. Thank you for your timely response to this clarification. Requestors name: Josselyn THIS PHYSICIAN QUERY FORM IS A PERMANENT PART OF THE MEDICAL RECORD JOSSELYN BUTT Oct 17, 2020 12:42 BRIAN GARZA MD Oct 25, 2020 14:27
== END 2020-10-15 14:25 | disposition home or self-care (01) | DRG 177 ==
LOC: EDUNIT# 19:05 → ER 19:06 → ICU 21:55 → 4TH 10-14 00:40
PROVIDERS: ADMIT Internal Medicine; ATTEND Internal Medicine
DX: U07.1 COVID-19 (principal); J80 Acute respiratory distress syndrome; J12.82 Pneumonia due to coronavirus disease 2019; J15.9 Unspecified bacterial pneumonia; D68.59 Other primary thrombophilia; D72.810 Lymphocytopenia; E66.9 Obesity, unspecified; Z86.711 Personal history of pulmonary embolism; F41.9 Anxiety disorder, unspecified; R00.1 Bradycardia, unspecified; R51.9 Headache, unspecified; R73.9 Hyperglycemia, unspecified; T38.0X5A Adverse effect of glucocorticoids and synthetic analogues, initial encounter; Z68.33 Body mass index [BMI] 33.0-33.9, adult
CPT/HCPCS: 36415; 36600; 51702; 70450; 71045; 71275; 80048; 80053; 81000; 82550; 82553; 82805; 82947; 83605; 83615; 83735; 83874; 83880; 84100; 84145; 84484; 85025; 85379; 85610; 85652; 85730; 86141; 87040; 87081; 87088; 87636; 93005; 93041; 94640; 94760; 94761; 96361; 96365; 96372; 96375; 96376